=== PATIENT | female | born 1980 | race Caucasian/White ===

== ENCOUNTER 2021-06-29 12:11 | Emergency (ER) | payer OTHER, SELFPAY ==
[2021-06-29 12:30] VITALS: BP 151/88; PULSE 87; RESP 18; TEMP 36.9; O2SAT 98
[2021-06-29 12:30] LABS: Apearance,Urine Clear (Clear); Bilirubin,Urine Negative (Negative); Blood, Urine Negative (Negative); Color,Urine Yellow (Yellow); Glucose,Urine (UA) Negative (Negative); Ketones,Urine TRACE (Negative); Protein,Urine Negative (Negative); UTC Leukocyte Esterase,Urine 1+ (Negative); UTC Nitrate,Urine Negative (Negative); Urobilinogen,Urine 2 EU/dl (0.2)
--- NOTE | 2021-06-29 12:57 | HMH.EDUTC ---
[facility] [place] Clinical Impression: UTI (urinary tract infection) Qualifiers: Urinary tract infection type: site unspecified Hematuria presence: without hematuria Qualified Code(s): N39.0 - Urinary tract infection, site not specified Diarrhea Qualifiers: Diarrhea type: unspecified type Qualified Code(s): R19.7 - Diarrhea, unspecified Disposition: Home, Self-Care Condition on Discharge: Good Instructions: Diarrhea, DI for Urinary Tract Infection (UTI) Additional Instructions: *Increase fluids. Water not Soda or Tea *Start antibiotic immediately and be sure to take as ordered for the FULL length of time although you should start to see improvement over the next 48 hours *Be SURE to follow up anytime for new or worsening symptoms with your family doctor. AND in 48 hours for urine culture results with your family doctor, if you do not have a doctor then you may call back to the [facility] for urine culture results and further treatment. We do recommend that you choose and establish care with a Primary Care Physician. AND follow up with them in 10-14 days to repeat UA to ensure infection is resolved and blood no longer present *Be sure to let your PCP know that we sent urine cultures from the [facility] so they can follow up to ensure that you area the on the correct antibiotic Call your doctor office and make appointment for 48 hours (2 days from today) to follow up and get the results of your urine culture and further treatment Prescriptions: cephALEXin [cephALEXin 500mg capsule*] 500 mg PO BID 7 Days #14 cap Transmission Status: Pending to [facility] Ondansetron [Zofran 4mg ODT] 4 mg PO TIDP PRN #9 tab PRN Reason: Nausea Transmission Status: Pending to [facility] Referrals: Km Chacon MD [Primary Care Provider] - As needed Time of Disposition: 13:08 Medical Decision Making - Alcides Inquiry Pt receiving controlled substance: No Alcides was queried for this patient: No Vital Signs: 06/29/21 12:30 06/29/21 13:03 Temperature 98.4 F 98.4 F Temperature Source Oral Pulse Rate 87 Pulse Rate [Left Brachial] 87 Respiratory Rate 18 18 Blood Pressure 151/88 H Blood Pressure [Left Arm] 151/88 H Blood Pressure Mean [Left Arm] 109 Blood Pressure Source [Left Arm] Automatic Cuff Blood Pressure Position [Left Arm] Sitting 02 Sat by Pulse Oximetry 98 Oxygen Delivery Method Room Air - Lab Data Lab results reviewed: Yes: I reviewed the patient's lab results. Lab Results 06/29/21 12:29: Urine Color Yellow, Urine Appearance Clear, Urine pH 7.0, Ur Specific [place] 1.020, Urine Protein Negative, Urine Glucose (UA) Negative, Urine Ketones Trace, Urine Blood Negative, Urine Nitrate Negative, Urine Bilirubin Negative, Urine Urobilinogen 2, Ur Leukocyte Esterase 1+ A Orders (Tests/Meds): ORDERS Category Date Time Status Urine Culture Stat Micro 06/29/21 12:29 [place] [facility] [place] - General Stated complaint: diarrhea, abd pains Time Seen by Provider: 06/29/21 12:58 Mode of Arrival: Ambulatory Source of Information: Patient Limitations: No Limitations Description of Symptoms (Recalled from Triage Doc. by RN): PATEINT C/O WATERY DIARRHEA AND SOME ABDOMINAL PAIN X 2 DAYS HEENT Symptoms (Recalled from RN notes): No Resp Symptoms (Recalled from RN notes): No Skin Symptoms (Recalled from RN notes): No MS Symptoms (Recalled from RN notes): No Functional Status (Recalled from RN notes): WNL - History of Present Illness Provider Complaint: Patient state that for the last couple of days she has been having nausea, cramping and diarrhea State that she has also been having a little burning when she urinates and thinks she may have a UTI so she wanted that checked too - Related Data Home Medications Medication Instructions Recorded Confirmed PARoxetine HCL [Paxil] 30 mg PO DAILY 06/29/21 06/29/21 lisinopriL [Lisinopril] 5 mg PO DAILY 06/29/21 06/29/21 Previous Rx's Medication Instruction
[2021-06-29 13:03] VITALS: BP 151/88; PULSE 87; RESP 18; TEMP 36.9; O2SAT 98
[2021-09-26 09:44] LABS: UTC Influenza A Antigen Negative (Negative); UTC Influenza B Antigen Negative (Negative)
== END 2021-06-29 13:26 | disposition home or self-care (01) ==
PROVIDERS: Emergency Provider Nurse Practitioner; PCP Family Medicine
DX: N30.00 Acute cystitis without hematuria (principal); I10 Essential (primary) hypertension
CPT/HCPCS: 81003; 87086; 87804; 99212; G0463

== ENCOUNTER 2021-11-02 12:34 | Emergency (ER) | payer OTHER, SELFPAY ==
[2021-11-02 13:00] VITALS: BP 185/95; PULSE 69; RESP 20; TEMP 36.5; O2SAT 99; BMI 20.2
[2021-11-02 13:37] LABS: UTC Strep Screen (Rapid) Negative (Negative)
--- NOTE | 2021-11-02 13:38 | EXP.UTC ---
Discharge Plan Disposition Patient Disposition: Home, Self-Care Condition: Good Prescriptions Prescriptions: New amoxicillin 400 mg/5 mL suspension for reconstitution 500 mg PO TID 10 Days Qty: 187.5 0RF No Action lisinopril 5 MG tablet 5 mg PO DAILY Referrals Follow up/Referrals: Km Chacon MD [Primary Care Provider] - See instructions Activity Restrictions/Add. Instructions Additional Instructions/Restrictions: *Monitor Temp, Over the counter Motrin or Tylenol as directed/as needed Tylenol every 4 hours and Motrin every 6 hours (as long as your family doctor has told you that you can take it) for fever or pain. and straight to ER if unable to lower temp less than 101.0 after medication given *Warm salt water gargles may help to soothe the throat *Throat Lozenges? *Warm fluids like tea with honey may help to soothe the throat? *Sleep elevated *Humidifier/Vaporizer Your throat swab was sent for culture. Those results are typically sent to your primary care. Be sure to follow up in 2-3 days with your family doctor/primary care physician if no improvement so they can review those result and treat if necessary. If you don?t have a primary care doctor, I recommend you get one but in the mean time, you will have to return to a walk in clinicFollow up IMMEDIATELY for new or worsening symptoms or no Noticeable improvement over the next 48-72 hours. 911 for difficulty breathing or swallowing Clinical Impressions Clinical Impression: Otitis media Instructions Patient Instructions: Middle Ear Infection, Amoxicillin Discharge ED Provider: Marisol Degroot [facility] General Stated complaint: left ear pain, sore throat Mode of Arrival: Ambulatory Source of Information: Patient Limitations: No Limitations Time Seen by Provider: 11/02/21 13:20 Description of Symptoms (Recalled from Triage Doc. by RN): PATIENT C/O BILATERAL EAR PAIN AND SORE THROAT X 2 DAYS HEENT Symptoms (Recalled from RN notes): Yes Resp Symptoms (Recalled from RN notes): No Skin Symptoms (Recalled from RN notes): No MS Symptoms (Recalled from RN notes): No Functional Status (Recalled from RN notes): WNL History of Present Illness Provider Complaint: Patient states that she has been having bilateral ear pain and sore throat for the last couple of days States that today she was hurting worse so she came in Related Data Home Medications Medication Instructions Recorded Confirmed lisinopril 5 mg tablet 5 mg PO DAILY Hypertension 06/29/21 11/02/21 Previous Rx's Medication Instructions Recorded amoxicillin 400 mg/5 mL oral 500 mg (6.25 mL) PO TID 10 days 11/02/21 suspension #187.5 mL Allergies Allergy/AdvReac Type Severity Reaction Status Date / Time No Known Allergies Allergy Verified 06/29/21 12:42 Worker's Comp Is this a Worker's Comp case?: No [facility] Medical History (Updated 11/02/21 @ 13:58 by Marisol Degroot APRN) Anxiety Hypertension Overactive thyroid gland Surgical History (Updated 11/02/21 @ 13:08 by Sonja Kebede RN) History of hysterectomy Social History (Updated 11/02/21 @ 13:08 by Sonja Kebede RN) Smoking Status: Current every day smoker tobacco type: cigarettes packs per day: 1 second hand exposure: No alcohol intake: never current occupational status: other Travel in the last 8 weeks: None housing: house ROS Obtained: Yes All systems reviewed & no additional complaints except as documented and Yes Systems reviewed as appropriate & no additional complaints except as documented Constitutional Constitutional: Reports system reviewed and no additional complaints, except as documented and Reports as per HPI Eyes Eyes: Reports system reviewed and no additional complaints, except as documented and Reports as per HPI ENT Ears, Nose, Mouth, and Throat: Reports system reviewed and no additional complaints, except as documented, Reports as per HPI
[2021-11-02 13:55] VITALS: BP 185/95; PULSE 69; RESP 20; TEMP 36.5; O2SAT 99
== END 2021-11-02 13:58 | disposition home or self-care (01) ==
PROVIDERS: Emergency Provider Nurse Practitioner; PCP Family Medicine
DX: H66.92 Otitis media, unspecified, left ear (principal); H92.01 Otalgia, right ear; J02.9 Acute pharyngitis, unspecified; I10 Essential (primary) hypertension; E05.90 Thyrotoxicosis, unspecified without thyrotoxic crisis or storm; F41.9 Anxiety disorder, unspecified; F17.210 Nicotine dependence, cigarettes, uncomplicated; Z79.899 Other long term (current) drug therapy
CPT/HCPCS: 87880; 99213; G0463

== ENCOUNTER 2022-01-16 03:06 | Emergency (ER) | payer OTHER, SELFPAY ==
[2022-01-16 03:17] VITALS: BP 00/00; PULSE 0; RESP 0; TEMP -17.7; TEMP 0
--- NOTE | 2022-01-16 03:19 | PC.NURSE ---
Patient spoke with MD and patient stated that she only wanted to be swabbed for strep and flu, that she wanted to know what she had before going to work but that she doesnt actually want an er visit. wrote outpatient order per pt request.
[2022-01-16 03:29] LABS: Coronavirus 19, PCR Not Detected (NotDetected); Influenza A, PCR Not Detected (NotDetected); Influenza B, PCR Not Detected (NotDetected)
[2022-01-16 04:00] LABS: Strep Scrn Group A (Rapid) Negative (Negative)
== END 2022-01-16 03:18 | disposition left against medical advice (07) ==
LOC: ER 03:18
PROVIDERS: Emergency Provider Emergency Medicine; PCP Family Medicine
DX: J02.9 Acute pharyngitis, unspecified (principal); R05.9 Cough, unspecified; I10 Essential (primary) hypertension; E05.90 Thyrotoxicosis, unspecified without thyrotoxic crisis or storm; F17.210 Nicotine dependence, cigarettes, uncomplicated; Z20.822 Contact with and (suspected) exposure to COVID-19; Z79.899 Other long term (current) drug therapy; Z53.21 Procedure and treatment not carried out due to patient leaving prior to being seen by health care provider
CPT/HCPCS: 87430; 99211; C9803; U0003; U0005

== ENCOUNTER 2022-03-08 22:08 | Emergency (ER) | payer OTHER, SELFPAY ==
[2022-03-08 22:10] VITALS: BP 169/85; PULSE 83; RESP 18; TEMP 37.1; O2SAT 100; BMI 21.0
--- NOTE | 2022-03-08 22:33 | XR_ITS ---
PROCEDURE INFORMATION: Exam: XR Facial Bones, Minimum of 3 Views, Complete Exam date and time: 03/08/2022 10:33 PM Age: 41 years old Clinical indication: Pain and injury or trauma; Other: Hit in nose with curtain sarina; Nose pain; Swelling; Additional info: Injury to nose , while cleaning a curtain sarina fell hitting the patient in the nose. TECHNIQUE: Imaging protocol: XR of the facial bones, minimum of 3 views. Complete exam. COMPARISON: No relevant prior studies available. FINDINGS: Sinuses: Well aerated. No opacification. Bones/joints: No fracture. Normal alignment. Soft tissues: Unremarkable. IMPRESSION: No evidence of nasal bone fracture
--- NOTE | 2022-03-08 23:04 | HMH.EDGENADL ---
Discharge Plan Disposition Patient Disposition: Home, Self-Care Chief Complaint: PAIN Prescriptions Prescriptions: No Action lisinopril 5 MG tablet 5 mg PO DAILY amoxicillin 400 mg/5 mL suspension for reconstitution 500 mg PO TID 10 Days Qty: 187.5 0RF Referrals Follow up/Referrals: Km Chacon MD [Primary Care Provider] - See instructions Clinical Impressions Clinical Impression: Contusion of nose Instructions Patient Instructions: DI for Contusion Discharge ED Provider: Travon Chance General Adult HPI General Chief complaint: PAIN Stated complaint: ao 03/08, nose swelling Time Seen by Provider: 03/08/22 23:04 Mode of Arrival: Ambulatory Source of Information: Patient and Medical Record Limitations: No Limitations Description of Symptoms (Recalled from ER Triage Doc. by RN): the pt states that she had a curtain sarina hit her on the nose the pt was concerned becasue she has a hx of sinus issues and her left nostril has swelling. History of Present Illness HPI narrative: acute nasal trauma and now has swelling Onset (ago): day(s) Location: face Severity: moderate Associated symptoms: denies other symptoms Related Data Home Medications Medication Instructions Recorded Confirmed lisinopril 5 mg tablet 5 mg PO DAILY Hypertension 06/29/21 11/02/21 Previous Rx's Medication Instructions Recorded amoxicillin 400 mg/5 mL oral 500 mg (6.25 mL) PO TID 10 days 11/02/21 suspension #187.5 mL Allergies Allergy/AdvReac Type Severity Reaction Status Date / Time No Known Allergies Allergy Verified 06/29/21 12:42 [facility] Disclaimer: The information contained in this section may have been updated after the patient was seen, as this information can be updated by other users. Medical History (Updated 03/08/22 @ 23:30 by Travon Chance MD) Anxiety Hypertension Overactive thyroid gland Surgical History (Updated 11/02/21 @ 13:08 by Sonja Kebede RN) History of hysterectomy Social History (Updated 11/02/21 @ 13:08 by Sonja Kebede RN) Smoking Status: Former smoker second hand exposure: No alcohol intake: never current occupational status: other Travel in the last 8 weeks: None housing: house ROS Obtained: Yes All systems reviewed & no additional complaints except as documented Physical Exam General General appearance: alert Head Head exam: normocephalic Eye Eye exam: Present PERRL and EOMI ENT ENT exam: Present mucous membranes moist Expanded ENT Exam Nasal speculum exam: Bilateral: other (nasal swelling turbinates ) Neck Neck exam: Present full ROM Respiratory Respiratory exam: Absent respiratory distress Cardiovascular Cardiovascular exam: Present regular rate Abdominal Exam Abdominal exam: Present soft Extremities Exam Extremities exam: Present full ROM Neurological Exam Neurological exam: Present alert, oriented X3 and CN II-XII intact; Absent motor sensory deficit Psychiatric Psychiatric exam: Present normal affect Skin Skin exam: Absent rash Medical Decision Making Medical Records Medical records reviewed: Yes I reviewed the patient's medical records. Alcides Inquiry Pt receiving controlled substance: No Vital Signs: 03/08/22 22:10 Temperature 98.8 F Temperature Source Oral Pulse Rate [Right] 83 Respiratory Rate 18 Blood Pressure [Right Arm] 169/85 H Blood Pressure Mean [Right Arm] 113 02 Sat by Pulse Oximetry 100 Lab Data Lab results reviewed: Yes I reviewed the patient's lab results. Orders (Tests/Meds): ORDERS Category Date Time Status XR facial bones min 3V Stat Exams 03/08/22 22:33 Completed Radiology Data #1: Image(s): Other (nasal ) Image Reviewed: Yes I have reviewed radiologist's interpretation Preliminary Findings: No Fracture Seen Medical Decision Narrative: nasal contusion with no fx seen Critical Care Time Critical Care Time Critical Care Time: No
[2022-03-08 23:37] VITALS: BP 147/78; PULSE 80; RESP 18; TEMP 37.1; O2SAT 100
== END 2022-03-08 23:40 | disposition home or self-care (01) ==
PROVIDERS: Emergency Provider Emergency Medicine; PCP Family Medicine
DX: S00.33XA Contusion of nose, initial encounter (principal); W22.8XXA Striking against or struck by other objects, initial encounter; F41.9 Anxiety disorder, unspecified; I10 Essential (primary) hypertension; Z90.710 Acquired absence of both cervix and uterus; Z87.891 Personal history of nicotine dependence
CPT/HCPCS: 70150; 99283; 99284

== ENCOUNTER 2024-02-23 15:13 | Outpatient (CLI) | payer OTHER, SELFPAY ==
--- NOTE | 2024-02-23 15:16 | US_ITS ---
FINAL REPORT TECHNIQUE: Real-time grayscale and color ultrasound of the thyroid was performed. CLINICAL HISTORY: LOW TSH LEVEL FINDINGS: The thyroid gland is normal in size measuring 49 mm on the right and 48 mm on the left. The isthmus measures 3 mm. The parenchyma is unremarkable . Nodules: No suspicious mass or nodule identified. IMPRESSION: Unremarkable thyroid ultrasound. Reviewed, Interpreted and Dictated by Carlos Alberto Washburn MD Transcribed by Desire Mitchell Authenticated and [facility]
== END 2024-02-23 23:59 | disposition home or self-care (01) ==
LOC: RAD 15:13
PROVIDERS: PCP Family Medicine; Visit Provider Family Medicine
DX: R79.89 Other specified abnormal findings of blood chemistry (principal)
CPT/HCPCS: 76536

== ENCOUNTER 2024-05-14 05:47 | Emergency (ER) | payer OTHER, SELFPAY ==
[2024-05-14 06:02] VITALS: BP 114/74; PULSE 72; RESP 14; TEMP 36.1; O2SAT 100; BMI 18.3
--- NOTE | 2024-05-14 06:04 | CT_ITS ---
FINAL REPORT TECHNIQUE: Axial images were obtained of the cervical spine by computed tomography. Coronal and sagittal reconstruction process performed. This study was performed with techniques to keep radiation doses as low as reasonably achievable (ALARA). Individualized dose reduction techniques using automated exposure control or adjustment of mA and/or kV according to the patient''s size were employed. CLINICAL HISTORY: acute on chronic neck pain FINDINGS: Cervical vertebrae show normal height. Disc spaces are well-preserved. There is no malalignment. The facets are properly aligned. IMPRESSION: No fracture. Reviewed, Interpreted and Dictated by Abner Copeland MD Transcribed by Britney Flor Authenticated and [facility]
--- NOTE | 2024-05-14 06:05 | PC.NURSE ---
Pt to bed 10 ambulatory. No obvious distress noted.
--- NOTE | 2024-05-14 06:06 | HMH.EDGENADL ---
Discharge Plan Disposition Patient Disposition: Home, Self-Care Prescriptions Prescriptions: New methocarbamol 500 mg tablet 1,000 mg PO Q6H PRN (Reason: pain) Qty: 120 0RF ondansetron HCl 4 mg tablet 4 mg PO Q8H PRN (Reason: nausea and vomiting) 5 Days Qty: 30 0RF No Action cefdinir 300 mg capsule 300 mg PO Q12H 10 Days Qty: 20 0RF lisinopril 5 MG tablet 5 mg PO DAILY lisinopril 20 mg tablet 20 mg PO DAILY meloxicam 7.5 mg tablet 7.5 mg PO DAILY PRN (Reason: Pain (Scale Score 1-3)) diazepam 2 mg tablet 2 mg PO NEEDED PRN (Reason: Anxiety) triamterene-hydrochlorothiazid 37.5-25 mg tablet 37 tab PO DAILY fluticasone propionate 50 mcg/actuation spray,suspension 50 mcg INTRANASAL NEEDED PRN (Reason: ALLERGIES) Referrals Follow up/Referrals: Provider,Referral, MD [Primary Care Provider] - See instructions Activity Restrictions/Add. Instructions Additional Instructions/Restrictions: I sent prescriptions for medications to the clinic pharmacy. Please follow-up with your primary care provider. Clinical Impressions Clinical Impression: Neck pain Instructions Patient Instructions: DI for Neck Pain Print Language Print Language: Citizen Of [place] Discharge ED Provider: Dax Reynolds Adult HPI General Chief complaint: Neck Pain/Injury Stated complaint: neck, back pain Time Seen by Provider: 05/14/24 05:50 History of Present Illness HPI narrative: 43-year-old female with reported chronic neck pain presents for worsening of neck pain. She reports that she is on Valium as a muscle relaxer through Dr. Thurston. Her pain got worse last night after she was moving boxes up and down through the attic. There was not one specific moment where she felt the injury occurred, but the pain has been worsening since then. She reports the pain is worse in the midline, approximately 9 out of 10. She denies any numbness tingling or weakness in any of the extremities. Reports pain is associated with nausea, the nausea improves when the pain improves. She took Tylenol and used an ice pack with some improvement but it has worsened again afterwards. She has never had a CT before. Related Data Home Medications ?Medication ?Instructions ?Recorded ?Confirmed lisinopril 5 mg tablet 5 mg PO DAILY Hypertension 06/29/21 05/14/24 diazepam 2 mg tablet 2 mg PO NEEDED PRN Anxiety 05/14/24 05/14/24 fluticasone propionate 50 50 mcg intranasal NEEDED PRN 05/14/24 05/14/24 mcg/actuation nasal ALLERGIES spray,suspension lisinopril 20 mg tablet 20 mg PO DAILY 05/14/24 05/14/24 meloxicam 7.5 mg tablet 7.5 mg PO DAILY PRN Pain (Scale 05/14/24 05/14/24 Score 1-3) triamterene 37.5 37 tab PO DAILY 05/14/24 05/14/24 mg-hydrochlorothiazide 25 mg tablet Previous Rx's ?Medication ?Instructions ?Recorded cefdinir 300 mg capsule 300 mg PO Q12H 10 days #20 caps 04/24/24 methocarbamol 500 mg tablet 1,000 mg (2 x 500 mg) PO Q6H PRN 05/14/24 pain #120 tabs ondansetron HCl 4 mg tablet 4 mg PO Q8H PRN nausea and 05/14/24 vomiting 5 days #30 tabs Allergies Allergy/AdvReac Type Severity Reaction Status Date / Time No Known Allergies Allergy Verified 04/24/24 08:54 [facility] Disclaimer: The information contained in this section may have been updated after the patient was seen, as this information can be updated by other users. Medical History Anxiety Overactive thyroid gland Hypertension Surgical History History of hysterectomy Social History Smoking Status: Current every day smoker tobacco type: cigarettes packs per day: 1 second hand exposure: No alcohol intake: never current occupational status: other Travel in the last 8 weeks: None housing: house Have you lived/traveled outside US in past 30 days?: No Contact w/someone who lives/traveled outside US past 30 days?: No Exposure to someone with infectious disease in past 14 days?: No Do you have a fever (greater than 100.4 F or 38 C)?: No Have you tested positive for COVID-19: No Exposed to someone with COVID-19 in past 14 days?: No Do you have a sore throat?: No Do you have a cough?: No Do you have any weakness?: No Do you have any diarrhea?: No Are you experiencing any unusual bleeding?: No Do you have any muscle aches/pain?: No Do you have any abdominal pain?: No Are you experiencing loss of taste or smell?: No Other Medical History Have you received the Pneumonia Vaccine: No ROS Obtained: Yes All systems reviewed & no additional complaints except as documented Physical Exam General General appearance: alert and in no apparent distress Head Head exam: atraumatic and normocephalic Eye Eye exam: Present normal appearance, PERRL and EOMI ENT ENT exam: Present normal oropharynx and normal external ear exam Neck Neck exam: Present normal inspection and other (Midline and paraspinal cervical neck tenderness) Chest Chest inspection: Present normal inspection and symmetric chest wall rise; Absent tenderness Respiratory Respiratory exam: Present normal lung sounds bilaterally; Absent respiratory distress Cardiovascular Cardiovascular exam: Present regular rate and normal rhythm Abdominal Exam Abdominal exam: Present soft; Absent distention, tenderness or guarding Extremities Exam Extremities exam: Present normal inspection; Absent edema or joint swelling Back Exam Back exam: Present normal inspection; Absent tenderness Neurological Exam Neurological exam: Present alert and oriented X3; Absent motor sensory deficit Psychiatric Psychiatric exam: Present normal affect and normal mood Skin Skin exam: Present warm, dry and normal color Lymphatic Lymphatic Findings: no adenopathy Medical Decision Making Medical Records Medical records reviewed: Yes I reviewed the patient's medical records. Screening: Per USPSTF and CDC recommendations, given the prevalence of disease in our region, it is our hospital?s policy to screen for HIV and viral Hepatitis for all patients aged 18 and over and those with ongoing risk factors. Alcides Inquiry Pt receiving controlled substance: No Alcides was queried for this patient: No Vital Signs: 05/14/24 06:02 05/14/24 06:14 Temperature 97 F L 97 F L Temperature Source Oral Pulse Rate 72 Pulse Rate [Right Radial] 72 Respiratory Rate 14 14 Blood Pressure 114/74 Blood Pressure [Right Arm] 114/74 Blood Pressure Mean [Right Arm] 87 02 Sat by Pulse Oximetry 100 100 Oxygen Delivery Method Room Air Lab Data Lab results reviewed: Yes I reviewed the patient's lab results. Orders (Tests/Meds): ED MEDICATIONS Discontinued Medications Generic Name Dose Route Start Last Admin Trade Name Freq PRN Reason Stop Dose Admin Ketorolac Tromethamine 30 mg 05/14/24 06:04 05/14/24 06:14 Ketorolac 30mg/Ml Vial IM 05/14/24 06:05 30 mg ONCE ONE Administration Lidocaine 1 each 05/14/24 06:06 05/14/24 06:15 Lidocaine 5% Transdermal Patch TP 05/14/24 06:07 1 each ONCE ONE Administration Methocarbamol 1,000 mg 05/14/24 06:04 05/14/24 06:15 Methocarbamol 500mg Tablet PO 05/14/24 06:05 1,000 mg ONCE ONE Administration Ondansetron HCl 4 mg 05/14/24 06:04 05/14/24 06:14 Ondansetron 4mg Odt SL 05/14/24 06:05 4 mg ONCE ONE Administration ORDERS Category Date Time Status CT cervical spine wo con Stat Cat Scan 05/14/24 06:04 Taken Medical Decision Narrative: 43-year-old female with history of neck pain presents for significant worsening of neck pain after moving boxes up and down out of an attic. History was obtained via interactive discussion with patient. On arrival, patient is [afebrile, hemodynamically stable, satting appropriately, alert, oriented x4, GCS 15], moving all extremities spontaneously. Full physical exam performed and significant for midline and paraspinal C-spine tenderness Differential includes but is not limited to musculoskeletal strain, cervical fracture, dislocation, disc herniation, spinal cord compression. Patient was given Toradol, Robaxin, Zofran for symptomatic management and correction of underlying abnormalities. Workup initiated including CT C-spine.. On re-evaluation, patient [remains afebrile, HD stable.] Imaging independently interpreted by me and significant for evidence of acute fracture or significant degenerative changes on my interpretation of CT imaging.. See radiology read for full review of final results. Given patient history, exam and workup, patient's presentation most likely represents cervical strain. Patient request discharge prior to CT results. Given no significant mechanism, no neurodeficits and benign appearance of CT, I discharged her and told her that we would call if there was something abnormal on the CT according to radiology. I sent Robaxin and Zofran for symptoms to her pharmacy. Procedures Risk/Benefits of Procedure(s) Were Explained: Yes Critical Care Critical Care Time Critical Care Time: No
[2024-05-14 06:14] VITALS: BP 114/74; PULSE 72; RESP 14; TEMP 36.1; O2SAT 100
[2024-05-14] MEDS: KETOROLAC 30MG/ML VIAL 30 MG IM (06:14)
[2024-05-14] MEDS: ONDANSETRON 4MG ODT 4 MG SL (06:14)
[2024-05-14] MEDS: LIDOCAINE 5% TRANSDERMAL PATCH 1 EACH TP (06:15)
[2024-05-14] MEDS: METHOCARBAMOL 500MG TABLET 1000 MG PO (06:15)
--- NOTE | 2024-05-14 06:20 | PC.NURSE ---
Pt to CT scan.
--- NOTE | 2024-05-14 06:25 | PC.NURSE ---
Pt returns from CT scan ambulatory.
[2024-05-14 06:32] VITALS: BP 128/74; PULSE 74; RESP 18; TEMP 36.6; O2SAT 98
== END 2024-05-14 06:36 | disposition home or self-care (01) ==
PROVIDERS: Emergency Provider Emergency Medicine
DX: M54.2 Cervicalgia (principal); R11.0 Nausea; F17.210 Nicotine dependence, cigarettes, uncomplicated
CPT/HCPCS: 72125; 96372; 99284; J1885; Q0162

== ENCOUNTER 2024-05-31 13:24 | Outpatient (RCR) | payer OTHER, SELFPAY ==
--- NOTE | 2024-05-31 15:34 | HMH.PTOPEV ---
PT Outpatient Evaluation Rehab PT Outpatient Evaluation Start: 05/31/24 15:05 Freq: Status: Active Protocol: Document 05/31/24 15:05 NARENDRA (Rec: 05/31/24 15:28 NARENDRA [id number]) E-signed By James Gilbert, PT Outpatient Therapy Subjective History Subjective History Pt is a 43 yof who is referred to [facility] outpatient PT with complaints of neck and back pain. She reports that she has dealt with this pain for years. Describes her pain is achey and burning in her neck and into her shoulder blades. She reports that her pain is constant but is worsened with overhead activities. She had a CT scan of her neck which was negative. She reports that her pain has improved slightly with prescribed medications. 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 Chief Complaint Pain,Stiff Symptom Type Ache,Burning Symptoms Relieved By Heat,Ice,Prescription Meds Symptoms Aggravated By Bending/Stooping,Physical Activity,Twisting,Lifting Prior Functional Limitations None Current Functional Limitations Reaching,Lifting,Housework, Desk Work/Reading,Driving Symptom Description Constant but Variable Level of pain today (0-10) 7 Pain scale - at its best (0-10) 4 Pain scale - at its worst (0-10) 9 Cervical Eval Palpation Cervical Muscles R Cervical Paraspinal,L Cervical Paraspinal,R Suboccipital,L Suboccipital,R CT Junction,L CT Junction,R Upper Trapezius,L Upper Trapezius,R Thoracic Paraspinals,L Thoracic Paraspinals Cervical/Thoracic Palpation Findings Tenderness Posture Head/C-Spine Posture Sitting Position Neutral Position Head/C-Spine Posture Standing Position Neutral Position Flexibility Deficits Upper Trapezius Muscle Length (R) Moderate Tightness,(L) Moderate Tightness Levaetor Scapulae Muscle Length (R) Moderate Tightness,(L) Moderate Tightness Pectoralis Minor Muscle Length (R) Moderate Tightness,(L) Moderate Tightness Passive Joint Mobility Cervical PIVM Dec: R OA L OA R C3/4 L C3/4 R C4/5 L C4/5 R C5/6 L C5/6 R C6/7 L C6/7 R C7/T1 L C7/T1 AROM Cervical Spine Extension Active Range of 10 Motion (degrees) Cervical Spine Flexion Active Range of 15 Motion (degrees) Cervical Spine Right Lateral Flexion 5 Active Range of Motion (degrees) Cervical Spine Left Lateral Flexion 5 Active Range of Motion (degrees) Cervical Spine Right Rotation Active 10 Range of Motion (degrees) Cervical Spine Left Rotation Active 10 Range of Motion (degrees) MMT Bilateral Deltoid (C5) 2+ Poor+ Biceps Brachii Strength Grade 4- Good- Wrist Extension Strength Grade 5 Normal Triceps Brachii Strength Grade 4- Good- Wrist Flexion Strength Grade 5 Normal Extensor Pollicis Longus Strength Grade 5 Normal Finger Abduction Strength Grade 5 Normal DTR Rt Biceps 2+ Lt Biceps 2+ Rt Brachioradialis 2+ Lt Brachioradialis 2+ Rt Triceps 1+ Lt Triceps 1+ Altered Sensation Bilateral Upper extremity Dermatomes C4,C5,C6,C7,C8,T1 Comment INTACT Special Test C-Spine Foraminal Compression ([place]) Negative Left,Negative Right Test C-spine Verterbral Accessory Movements Central P/A [place],Right P/A that Elicit Symptoms [place],Left P/A [place] C-Spine Foraminal Distraction Test Negative C-Spine Compression Test Positive Left,Positive Right C-Spine Swallowing Test Negative Left Shoulder Abduction Relief Test Negative Left,Negative Right Shoulder Brachial Plexus Stretch Test Negative Left,Negative Right Oswestry Index Section 1 Pain Intensity The pain is severe and does not vary much Section 2 Personal Care (Washing,Dresing) increase the pain, but I manage not to change my way of doing it Section 3 Lifting Pain prevents me from lifting weights off the floor Section 4 Walking I have some pain when walking but it does not increase with distance Section 5 Sitting I can sit in my favorite chair for as long as I like Section 6 Standing I have some pain on standing, but it does not increase with time Section 7 Sleeping Because of my pain, my normal night's sleep is less than 6 hours sleep Section 8 Social Life Pain has no significant effect on my social life apart from limiting Section 9 Traveling I get extra pain while traveling, but it does not compel me to seek al Section 10 Changing Degreee of Pain My pain is neither getting better or worse Score and Risk Level Oswestry Sc 21 Oswestry Risk Level Moderate Disability Outpatient Therapy Assessment Impairments Problems/Impairmments Palpation Tenderness,Impaired Range of Motion,Impaired Strength,Impaired Lifting, Impaired Dressing,Impaired Household Care,Impaired Work Activities,Subjective C/O Pain Prognosis Rehab Potential Fair Clinical Impression Consistent with Diagnosis Yes Consistent with Neck pain with mobility deficits Short Term Goals Number of Weeks 4 Decreased Palpation Tenderness Yes: 2/4 to TTP Assessment Above Increase Range of Motion Yes: 50-75% WNL of CROM Increase Strength Yes: 3+/5 to B shoulders Restore Ability to Lift Objects to Waist Yes: 10# without increasing Level pain and proper lifting mechanics Restore Ability to Lift Objects to Yes: 3# without increasing Shoulder Level pain and proper scapulohumeral rhythm Improve Ability For Household Care Yes: Light cleaning without increasing pain Improve Oswestry Score Yes: Mild Disability Decrease Subjective C/O Pain Yes: 510 with above assessment Patient to be Ind w/ HEP Yes 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 Goals Number of Weeks 8 Decreased Palpation Tenderness Yes: 0-1/4 to TTP Assessment Increase Range of Motion Yes: 75-100% CROM Increase Strength Yes: 4-4+/5 to B shoulders Restore Ability to Lift Objects to Waist Yes: 20# without increasing Level pain and with proper lifting mechanics Restore Ability to Lift Objects Overhead Yes: 3# without increasing pain and with proper SH Rhythm Improve Ability For Household Care Yes: Heavy Cleaning Activities without increasing pain Improve Oswestry Score Yes: No Disability Decrease Subjective C/O Pain Yes: 2-05/10 with above assessment Patient to be Ind w/ Advanced HEP Yes Outpatient Therapy Plan of Care Treatment Plan May Include Therapeutic Exercise Including Home Yes Exercise Program Manual Therapy Techniques Yes Neuromuscular Re-education Yes Therapeutic Activities to Return to Yes Previous Functional/Work Level ADL/Self Care Education Yes Mechanical Traction Yes Thermal Modalities Yes Electrical Stimulation Yes Ultrasound/Phonophoresis Yes Manual Lymphatic Drainage Yes Eval/Re-Eval Yes Frequency Times per week 2 Duration Number of Weeks 8 Addendums This patient is a candidate for social No or vocational rehab? Patient/Guardian verbally acknowledges Yes understanding of treatment program and consents to further treatment? Patient/Guardian verbally acknowledges Yes understanding of diagnosis, prognosis and goals for treatment? Eval Complexity PT Charges 37624 - Moderate Complexity Shoulder/Elbow Eval Shoulder Objective Measurements Elbow Objective Measurements PHYSICIAN CERTIFICATION: I certify the specified therapy services for Naomy Pichardo are required, authorized, and reviewed every 30 days.
== END 2024-05-31 23:59 | disposition home or self-care (01) ==
LOC: PT 13:24
PROVIDERS: Visit Provider Family Medicine
DX: M54.9 Dorsalgia, unspecified (principal)
CPT/HCPCS: 97163; 97530

== ENCOUNTER 2024-06-23 15:00 | Outpatient (RCR) | payer OTHER, SELFPAY | END 2024-06-23 23:59 | disposition home or self-care (01) | LOC: PT 15:00 | PROVIDERS: Visit Provider Family Medicine | DX: M54.9 Dorsalgia, unspecified (principal) | CPT/HCPCS: 97110; 97140; 97530 ==

== ENCOUNTER 2024-12-28 12:44 | Outpatient (CLI) | payer OTHER, SELFPAY ==
--- OUTSIDE RECORDS SUMMARY | 2024-02-05 10:15 | XMS_ITS ---
Author Organization [facility] Address [address] [place] [id number] Care Team Providers Care Supply Chain Tech Name Role Phone Kana Box Primary Care Provider [phone] Elidia Thurston Unavailable [phone] Allergies No Known Allergies Results Component Value Reference Range Notes P-Comprehensive Metabolic Pa annia (CMP) Reviewed date:02/09/2024 12:59:10 PM Interpretation:Na 131, cl 93, bun 30, Cr 1.45, gfr 46 Performing Lab: Notes/Report: Test performed by [facility] [address] [place] [address] , [address], [place] [address] Clovis Raimrez MD, Dial Mounter CLIA: [id number] Sodium 131 135-145 mmol/L Potassium 5.1 3.5-5.3 mmol/L Chloride 93 97-108 mmol/L CO2 22 22-32 mmol/L Glucose 81 65-99 mg/dL BUN 30 6-20 mg/dL Creatinine 1.45 0.50-1.00 mg/dL Calcium 10.3 8.6-10.4 mg/dL eGFR by Creatinine 46 >59 mL/min/1.73m2 Protein 7.4 6.0-8.3 g/dL Albumin 5.0 3.5-5.3 g/dL Alkaline Phosphatase 73 35-121 IU/L ALT (SGPT) 8 <5-47 IU/L AST (SGOT) 16 <5-40 IU/L Bilirubin, Total 1.0 <0.2-1.2 mg/dL A/G Ratio 2.1 1.1-2.5 P-TSH Reviewed date:02/09/2024 12:59:10 PM Interpretation:0.38 Performing Lab: Notes/Report: Test performed by [facility] [address] [place] [address] , [address], [place] [address] Clovis Ramirez MD, Dial Mounter CLIA: [id number] TSH 0.38 0.43-5.25 mU/L REASON FOR VISIT checkup Medications Medication SIG (Take, Route, Frequency, Duration) Notes Start Date End Date Status Fluticasone Propionate 50 MCG/ACT Instill 1 SPRAY IN EACH NOSTRIL TWICE DAILY; Duration: 30 Active diazePAM 2 MG 1 tablet as needed O rally Three times a day 02/05/2024 Active Meloxicam 7.5 MG 1 tablet Orally Once a day; Duration: 30 day(s) 06/26/2023 Active Maxzide-25 37.5-25 MG 1 tablet in the mo rning Orally Once a day; Duration: 30 days Active Lisinopril 20 mg TAKE ONE TABLET BY M OUTH EVERY DAY; Duration: 30 Active Vital Signs Blood pressure systolic 102 mm Hg 02/05/20 24 Blood pressure diastolic 68 mm Hg 024 Heart Rate 78 /min 02/05/2024 Height 63.50 in 02/05/2024 Weight 102.8 lbs 02/05/2024 BMI 17.92 kg/m2 02/05/2024 Encounters Encounter Location Date Provider Diagnosis [facility] [address] [facility] [address] [facility] [address] [place], [place] [id number] 02/05/2024 Elidia Thurston Situational depressi on F43.21 ; Essential hypertension I10 ; Hyperthyroidism E05.90 and Anxiety disorder F41.9 Assessments Encounter Date Diagnosis (ICD Code) Assessment Notes Treatment Notes Treatment Clinical Notes Section Notes 02/05/2024 Situational depression (ICD-10 - F43.21) 02/05/2024 Essential hypertension (ICD-10 - I10) 02/05/2024 Hyperthyroidism (ICD-10 - E05.90) 02/05/2024 Anxiety disorder (ICD-10 - F41.9) Plan Of Treatment Medication Medication Name Sig Start Date Stop Date Notes diazePAM 2 MG 1 tablet as needed O rally Three times a day 02/05/2024 Next Appt Details Follow Up: 3 Months, Reason: Provider Name:Elidia Diaz er, 01/07/2025 11:30:00 AM, [address], [address], [place], [id number], Progress Notes * Naomy PICHARDODOB: 2 (44 yo F)Acc No.[id number]:02/05/2024 Progress Notes Patient: Naomy CARO Provider: Elidia Thurston M.D. :1980 A ge:43 Y S ex:Female Date:02/05/2024 Address:[address] [place], [place] [address], [id number] Pcp:Kana Box Subjective: * Chief Complaints: * 1 . Checkup. * HPI: P sychology: The patient is here today for a check up on Depression with anxiety. Pt states she has had some sad days through the holiday since her mother passed, but having her granddaughter helps. Pt states she is needing a refill sent to Clinic pharmacy for the Diazepam. * ROS: D ERMATOLOGY: no R jackie. n o H caryl. G ASTROENTEROLOGY: no N ausea. n o V omiting. n o D iarrhea.? U ROLOGY: no D ifficulty urinating. n o B lood in urine. * Medical History: A llergic rhinitis, Anxiety, Endometriosis, Tobacco abuse, 03/01/2015 Patient will no longer receive controlled substances from [facility] per Dr. Chacon. * Surgical History: T ubal Ligation , LT Salpingoophorectomy , Hysterectomy 05/10/2010, Oral 10/29/2011. * Hospitalization/Major Diagno stic Procedure: E mergency surgery after hysterectomy 05/2010, Abdominal Pain- [facility] 07/24/2012, Migraine- [facility] 08/2012, Neck pain- [facility] 12/04/2014, Panic Attacks- [facility] ER , LT Knee Effusion- [facility] 02/12/2018, Nose Injury- [facility] 03/08/2022. * Family History: F ather: alive. M other: alive, hypertension. 1 sister(s) - healthy. 1 son(s) , 1 daughter(s) - healthy. . * Social History: C URRENT TOBACCO USE S moking Status: Patient does smoke, packs per day: 1. C affeine: yes, frequency:. Exercise: yes. Home smoke detector use: yes. Marital Status: , . Past smoking status: yes, PPD: < 1, years: since age of 22 ,determination:. Recreational drug use: no. Alcohol: no. * Medications: T aking Meloxicam 7.5 MG Tablet 1 tablet Orally Once a day , Taking Fluticasone Propionate 50 MCG/ACT Suspension Instill 1 SPRAY IN EACH NOSTRIL TWICE DAILY , Taking diazePAM 2 MG Tablet 1 tablet as needed Orally Three times a day , Taking Lisinopril 20 mg Tablet TAKE ONE TABLET BY MOUTH EVERY DAY , Taking Maxzide-25 37.5-25 MG Tablet 1 tablet in the morning Orally Once a day , Medication List reviewed and reconciled with the patient * Allergies: N .K.D.A. Objective: * Vitals: W t:102.8, Temp:98.2, BP:102/68, HR:78, Nurse:SABRINA, Ht: 63.50, BMI:17.92. * Examination: G eneral Examination: General Appearance: N AD. H EENT: u nremarkable.?Oral cavity: n o lesions, mucosa moist and WNL, no erythema. N anna: s upple, no lymphadenopathy, less tender, no spasm. C hest: n ormal shape and expansion. H eart: RSR. L ungs: c lear to auscultation. N eurologic Exam: I ntact, gait normal.?Skin: n ormal, no rash. P eripheral pulses: n ormal . E xtremities: n o leg edema. P sychology: General Appearance: N AD. G rooming : a dequate.?Eye contact : n ormal. M ood : p leasant. N eurologic Exam: I ntact, gait normal. Assessment: * Assessment: 1. S ituational depression - F43.21 (Primary) 2 . E ssential hypertension - I10 3 . H yperthyroidism - E05.90 4 . A nxiety disorder - F41.9 Plan: * Treatment: Value Reference Range A /G Ratio 2.1 1.1-2.5 - * A lbumin 5.0 3.5-5.3 - g/dL * A lkaline Phosphatase 73 35-121 - IU/L * A LT (SGPT) 8 <5-47 - IU/L * A ST (SGOT) 16 <5-40 - IU/L * B ilirubin, Total 1.0 <0.2-1.2 - mg/dL * B UN 30 H 6-20 - mg/dL * C alcium 10.3 8.6-10.4 - mg/dL * C hloride 93 L 97-108 - mmol/L * C O2 22 22-32 - mmol/L * C reatinine 1.45 H 0.50-1.00 - mg/dL * G lucose 81 65-99 - mg/dL * P otassium 5.1 3.5-5.3 - mmol/L * S odium 131 L 135-145 - mmol/L * P rotein 7.4 6.0-8.3 - g/dL * e GFR by Creatinine 46 L >59 - mL/min/1.73m2 * Rosalind Okeefe Ann 4 12:59:00 PM >See phone encounter 2.?Hyperthyroidism?LAB: P-TSH (Collection Date & Time - 02/05/2024 02:06 PM)?0.38* Value Reference Range T SH 0.38 L 0.43-5.25 - mU/L * Rosalind Okeefe Ann 4 12:59:00 PM >See phone encounter 3.?Anxiety disorder? Refill diazePAM Tablet, 2 MG, 1 tablet as needed, Orally, Three times a day, 90, Refills 2.? * Follow Up: 3 Months * Images: Billing Information: * Visit Code: 78381 Office Visit, Est Pt., Level 4. * Procedure Codes: * Electronic signature of Elidia Thurston MD on 12/28/2024 at 01:15 PM EDT Sign off status: Pending * Provider: Elidia Thurston M.D. Date: 04/07/2023 Generated for Chriss warren/Faxing/eTransmitting on: 1 01:15 PM EDT History and Physical Notes * Examination Category Sub-Category Detail Notes Category Not es General Examination HEENT: unremarkable Heart: RSR Lungs: clear to auscultatio n Extremities: no leg edema General Appearance: NAD Skin: normal, no rash Neurologic Exam: Intact, gait normal Neck: supple, no lymphaden opathy, less tender, no spasm Oral cavity: no lesions, mucosa m oist and WNL, no erythema Peripheral pulses: normal Chest: normal shape and exp ansion Psychology General Appearance: NAD Neurologic Exam: Intact, gait normal Grooming : adequate Eye contact : normal Mood : pleasant
--- OUTSIDE RECORDS SUMMARY | 2024-05-06 09:45 | XMS_ITS ---
Author Organization [facility] Address [address] [place] [phone] Care Team Providers Care Crab Catcher Name Role Phone Kana Box Primary Care Provider [phone] Elidia Thurston Unavailable [phone] Allergies No Known Allergies Results Component Value [...] Encounter Location Date Provider Diagnosis [facility] 12[address] [facility] 36 [facility] [address] [place] [phone] 05/06/2024 Elidia Thurston Acute URI J06.9 and [...] Name:Elidia Diaz er, 01/07/2025 11:30:00 AM, [address] [facility] 36 [facility], [address], [place], [phone], Procedure Notes * Category Sub-Category Detail Notes Tympanometry abnormal bilaterally low peaks Volume left 1.2 Volume right 1.5 Stapedial reflex absent bilaterally Progress Notes * Naomy PICHARDODOB: 2 (44 yo F)Acc No.[id number]:05/06/2024 Progress Notes Patient: Naomy CARO Provider: Elidia Thurston M.D. :1980 A ge:43 Y S ex:Female Date:05/06/2024 Address:[place] Pcp:Kana Box Subjective: * Chief Complaints: * 1 . 3 months. * HPI: P sychology: The pt is here today for a check up on Depression with anxiety. Pt states she doing better with the depression. Pt states she has some swelling in her lymph nodes in her neck and some fluid in her ears. Pt states she went to the [facility] on FridayApr 24 and was told she [...] will no longer receive controlled substances from [facility] per Dr. Chacon. * Surgical History: T ubal Ligation , LT Salpingoophorectomy , Hysterectomy 05/10/2010, Oral 10/29/2011. * Hospitalization/Major Diagno stic Procedure: E mergency surgery after hysterectomy 05/2010, Abdominal Pain- [facility] ER 07/24/2012, Migraine- [facility] 08/2012, Neck pain- [facility] ER 12/04/2014, Panic Attacks- [facility] ER , LT Knee Effusion- [facility] ER 02/12/2018, Nose Injury- [facility] ER 03/08/2022. * Family History: F [...] bilaterally. * Procedure Codes: 9 2567 TYMPANOMETRY, [address] [place], [address] CAPILLARY BLOOD DRAW, 98452 CBC WITH AUTO DIFF, 3074F SYST BP LT 130 MM HG, 3079F DIAST BP 80-89 MM HG * Follow Up: 3 Months * Images: Billing Information: * Visit Code: 11095 Office Visit, Est Pt., Level 4. Modifiers: 25 * Procedure Codes: 87280 TYMPANOMETRY. [address] [place]. [address] CAPILLARY BLOOD DRAW. 74617 CBC WITH AUTO DIFF. 3074F SYST BP LT 130 MM HG. 3079F DIAST BP 80-89 MM HG. * Electronic signature of Elidia Thurston MD on 12/28/2024 at 01:15 PM EDT Sign off status: Pending * Provider: Elidia Thurston M.D. Date: 0 05/06/2024 Generated for Printi ng/Faprachig/eTransmitting on: 1 01:15 PM EDT History and [...]
--- OUTSIDE RECORDS SUMMARY | 2024-05-14 06:30 | XMS_ITS ---
[facility] [address] [place] [id number] Care Team Providers Care Winterizer Name Role Phone Kana Box Primary Care Provider Elidia Thurston [phone] Allergies No Known Allergies Reason For Referral Reason back pain Diagnosis 1 Back pain (M54.9) [facility] Referring Provider First Name Elidia Frye Referring Provider Last Name Bertrand Referring Provider Speciality Family Pra ctice Referred Provider Specialty Physical The rapist General Notes Shayy Chase 05/15/19 12:18:48 PM > faxed to [facility] PT Referral Priority Routine REASON FOR [...] Encounters Encounter Location Date Provider Diagnosis [facility] [address] [facility] [address] [place] [phone] 05/14/2024 Elidia Thurston Back pain M54 .9 [...] 2 Weeks, Reason: Provider Name:Elidia Diaz er, 01/07/2025 11:30:00 AM, [address] [facility] [address] [facility], [address], [place], [phone], Progress Notes * Naomy PICHARDODOB: 2 (44 yo F)Acc No.[id number]:05/14/2024 Progress Notes Patient: Naomy CARO Provider: Elidia Thurston M.D. :1980 A ge:43 Y S ex:Female Date:05/14/2024 Address:[address] [id number] Pcp:Kana Box Subjective: * Chief Complaints: * 1 . ER this morning neck and shoulder pain. * HPI: S houlder/Upper arm: The patient is here today with c/o pain in her right shoulder. Pt states this pain got worse about 2 days ago and the nausea has worsened. Pt states she went to the ER at [facility] this morning and they gave her [...] will no longer receive controlled substances from [facility] per Dr. Chacon. * Surgical History: T ubal Ligation , LT Salpingoophorectomy , Hysterectomy 05/10/2010, Oral 10/29/2011. * Hospitalization/Major Diagno stic Procedure: E mergency surgery after hysterectomy 05/2010, Abdominal Pain- [facility] ER 07/24/2012, Migraine- [facility] ER 08/2012, Neck pain- [facility] ER 12/04/2014, Panic Attacks- [facility] ER , LT Knee Effusion- [facility] ER 02/12/2018, Nose Injury- [facility] ER 03/08/2022. * Family History: F [...] * Images: Billing Information: * Visit Code: 00247 Office Visit, Est Pt., Level 3. * Procedure Codes: 3074F SYST BP LT 130 MM HG. 3078F DIAST BP < 80 MM HG. * Electronic signature of Elidia Thurston MD on 12/28/2024 at 01:15 PM EDT Sign off status: Pending * Provider: Elidia Thurston M.D. Date: 0 05/14/2024 Generated for Chriss warren/Richa/Kalie on: 1 01:15 PM EDT History and Physical Notes * HPI (History [...]
--- OUTSIDE RECORDS SUMMARY | 2024-07-08 10:45 | XMS_ITS ---
Author Organization [facility] Address [facility] [facility] [address] [place] [phone] Care Team Providers Care Pen Tester Name Role Phone Kana Box Primary Care Provider Elidia Thurston [phone] Allergies No Known Allergies REASON FOR VISIT [...] Provider Diagnosis [place] [address] [place] [phone] 07/08/2024 Elidia Thurston Myofasciitis M60.9 Assessments Encounter [...] scheduled, Carlita son: Provider Name:Elidia Diaz er, 01/07/2025 11:30:00 AM, [address] [facility] 36 [facility], [address] , [place], [id number], Progress Notes * Naomy PICHARDODOB: 2 (44 yo F)Acc No.[id number]:07/08/2024 Progress Notes Patient: Naomy CARO Provider: Elidia Thurston M.D. :1980 A ge:43 Y S ex:Female Date:07/08/2024 Address:[address] [place] [address] [place] Pcp:Kana Box Subjective: * Chief Complaints: * [...] will no longer receive controlled substances from [facility] per Dr. Chacon. * Surgical History: T ubal Ligation , LT Salpingoophorectomy , Hysterectomy 05/10/2010, Oral 10/29/2011. * Hospitalization/Major Diagno stic Procedure: E mergency surgery after hysterectomy 05/2010, Abdominal Pain- [facility] 07/24/2012, Migraine- [facility] 08/2012, Neck pain- [facility] 12/04/2014, Panic Attacks- [facility] , LT Knee Effusion- [facility] 02/12/2018, Nose Injury- [facility] 03/08/2022. * Family History: [...] * Images: Billing Information: * Visit Code: 88902 Office Visit, Est Pt., Level 3. * Procedure Codes: * Electronic signature of Elidia Thurston MD on 12/28/2024 at 01:15 PM EDT Sign off status: Pending * Provider: Elidia Thurston M.D. Date: 0 07/08/2024 Generated for Rennyi ng/Richa/eTransmitting on: 01:15 PM EDT History and Physical Notes [...]
--- OUTSIDE RECORDS SUMMARY | 2024-08-02 09:45 | XMS_ITS ---
Author Organization [facility] Address [address] [place] [phone] Care Team Providers Care Smooth Plater Name Role Phone Kana Box Primary Care Provider Elidia Thurston [phone] Allergies No Known Allergies REASON FOR VISIT [...] Diagnosis [place] [address] [place] [phone] 08/02/2024 Elidia Thurston Anxiety disorder F41 .9 [...] 2 Months, Reason: Provider Name:Elidia Diaz er, 01/07/2025 11:30:00 AM, [address], [address] , [place], [place], [phone], Progress Notes * Naomy PICHARDODOB: 2 (44 yo F)Acc No.[id number]:08/02/2024 Progress Notes Patient: Naomy CARO Provider: Elidia Thurston M.D. :1980 A ge:43 Y S ex:Female Date:08/02/2024 Address:[address] [place] [address] [place] Pcp:Kana Box Subjective: * Chief Complaints: * 1 . 3 month f/u. * HPI: P sychology: The pt is here for a check up on Depression with anxiety. Pt states she is needing a refill for Diazepam sent to clinic pharmacy. Pt states she is having some stress right with having to travel to [place] to help her daughter. 43 year old [...] will no longer receive controlled substances from [facility] per Dr. Chacon. * Surgical History: T ubal Ligation , LT Salpingoophorectomy , Hysterectomy 05/10/2010, Oral 10/29/2011. * Hospitalization/Major Diagno stic Procedure: E mergency surgery after hysterectomy 05/2010, Abdominal Pain- [facility] 07/24/2012, Migraine- [facility] 08/2012, Neck pain- [facility] 12/04/2014, Panic Attacks- [facility] , LT Knee Effusion- [facility] 02/12/2018, Nose Injury- [facility] 03/08/2022. * Family History: F ather: [...] enal insufficiency - N28.9 5 . B ME less than 19,adult - Z68.1 Plan: * [...] * Images: Billing Information: * Visit Code: 46079 Office Visit, Est Pt., Level 3. * [...] M.D. Date: 0 08/02/2024 Generated for Chriss warren/Richa/Kalie on: 01:15 PM EDT History and Physical [...]
--- OUTSIDE RECORDS SUMMARY | 2024-10-04 07:00 | XMS_ITS ---
Author Organization [facility] Address [address] [place] [id number] Care Team Providers Care Penciller Name Role Phone Kana Box Primary Care Provider [phone] Elidia Thurston Unavailable [phone] Allergies No Known Allergies Results Component Value Reference Range Notes P-Comprehensive Metabolic Pa annia (CMP) Reviewed date:10/05/2024 01:57:45 PM Interpretation:Normal Performing Lab: Notes/Report: Test performed by [facility] [address] [place] [address] , [address], [place] [address] Clovis Ramirez MD, Probate Clerk CLIA: [id number] Sodium 140 135-145 mmol/L Potassium 4.0 3.5-5.3 [...] 10/04/2024 Encounters Encounter Location Date Provider Diagnosis [facility] [address] [facility] [address] [facility] [address] [place] [id number] 10/04/2024 Elidia Thurston Anxiety disorder F41 .9 [...] Diaz er, 01/07/2025 11:30:00 AM, [address] [facility], [address], [place], [id number], Progress Notes * Naomy PICHARDODOB: 2 (44 yo F)Acc No.[id number]:10/04/2024 Progress Notes Patient: Naomy CARO Provider: Elidia Thurston M.D. :1980 A ge:44 Y S ex:Female Date:10/04/2024 Address:[place], [id number] Pcp:Kana Box Subjective: * Chief Complaints: * [...] will no longer receive controlled substances from [facility] per Dr. Chacon. * Surgical History: T ubal Ligation , LT Salpingoophorectomy , Hysterectomy 05/10/2010, Oral 10/29/2011. * Hospitalization/Major Diagno stic Procedure: E mergency surgery after hysterectomy 05/2010, Abdominal Pain- [facility] 07/24/2012, Migraine- [facility] 08/2012, Neck pain- [facility] 12/04/2014, Panic Attacks- [facility] , LT Knee Effusion- [facility] 02/12/2018, Nose Injury- [facility] 03/08/2022. * Family History: F ather: [...] * Images: Billing Information: * Visit Code: 95846 Office Visit, Est Pt., Level 4. * Procedure Codes: 3074F SYST BP LT 130 MM HG. 3078F DIAST BP < 80 MM HG. * Electronic signature of Elidia Thurston MD on 12/28/2024 at 01:15 PM EDT Sign off status: Pending * Provider: Elidia Thurston M.D. Date: 0 10/04/2024 Generated for Rennyi ng/Faprachig/eTransmitting on: 01:15 PM EDT History and Physical [...]
--- NOTE | 2024-12-28 13:05 | XR_ITS ---
FINAL REPORT CLINICAL HISTORY: low back pain nki COMPARISON: 12/17/2012 FINDINGS: LUMBAR SPINE Six views were obtained. There is no acute fracture. The disc spaces are well-preserved. There is no malalignment. There is mild facet sclerosis in the lower lumbar spine. There is no evidence of instability. IMPRESSION: No acute process. Reviewed, Interpreted and Dictated by Abner Copeland MD Transcribed by Dianna Ruffin Authenticated and [facility]
--- NOTE | 2024-12-28 13:05 | XR_ITS ---
FINAL REPORT CLINICAL HISTORY: ACUTE BACK PAIN FINDINGS: RIGHT HIP Three views were obtained. There is no fracture or dislocation. The joint spaces appear normal. There are multiple surgical clips in the pelvis. There is no acute soft tissue abnormality. IMPRESSION: No acute process. Reviewed, Interpreted and Dictated by Abner Copeland MD Transcribed by Dianna Ruffin Authenticated and [facility]
--- OUTSIDE RECORDS SUMMARY | 2024-12-28 13:17 | XMS_ITS | Patient Health Record ---
Author Organization [facility] Address [address] [place] [id number] Care Team Providers Care Lease Operator Name Role Phone Kana Box Primary Care Provider [phone] Elidia Thurston Unavailable [phone] Ligia Gilmore Unavailable [phone] Allergies No Known Allergies Results Component Value Reference Range Notes P-Comprehensive Metabolic Pa annia (CMP) Reviewed date:02/09/2024 12:59:10 PM Interpretation:Na 131, cl 93, bun 30, Cr 1.45, gfr 46 Performing Lab: Notes/Report: Test performed by [facility] , [address], [place] [address] Clovis Ramirez MD, Training Personnel Supervisor CLIA: [id number] Sodium 131 135-145 mmol/L Potassium 5.1 3.5-5.3 [...] Interpretation:0.38 Performing Lab: Notes/Report: Test performed by [facility] [address] , [address], [place] [address] Clovis Ramirez MD, Training Personnel Supervisor CLIA: [id number] TSH 0.38 0.43-5.25 mU/L CBC Fingerstick (in house) Reviewed date:05/06/2024 05:59:38 [...] - 38 plat 245 100 - 400 P-Comprehensive Metabolic Pa annia (CMP) Reviewed date:10/05/2024 01:57:45 PM Interpretation:Normal Performing Lab: Notes/Report: Test performed by [facility] [address] [place] [address] , [address], [place] [address] Clovis Ramirez MD, Training Personnel Supervisor CLIA: [id number] Sodium 140 135-145 mmol/L Potassium 4.0 3.5-5.3 [...] 0.7 <0.2-1.2 mg/dL A/G Ratio 1.9 1.1-2.5 xultrasound : thyroid Reviewed date:02/26/2024 12:28:48 PM Interpretation:unremarkable Performing Lab: Notes/Report: unremarkable Medications Medication SIG (Take, Route, Frequency, Duration) Notes Start Date End Date Status Maxzide-25 37.5-25 MG 1 tablet in the morning Orally Once a day; Duration: 30 days Active Ondansetron 4 MG 1 tablet on the tongue and allow to dissolve Orally every 6 hours As needed 12/28/2024 Active Cyclobenzaprine HCl 10 MG 1 tablet at be dtime as needed Orally 3 times a day; Duration: 30 days 12/28/2024 Active Medrol 4 MG as directed orally daily; Duration: 6 days 12/28/2024 Active Lisinopril 20 mg one tablet by mouth daily; Duration: 90 days Active Gabapentin 100 MG 2 Orally Two times a day; Duration: 30 days 11/19/2024 Active diazePAM 2 MG 1 tablet as needed Orally Three times a day; Duration: 30 days 10/04/2024 Active Fluticasone Propionate 50 MCG/ACT Instill 1 SPRAY IN EACH NOSTRIL TWICE DAILY; Duration: 30 Active Methocarbamol 500 MG 2 tablets Orally twice a day Not-Taking Immunizations Vaccine Route Administration Date Status Comme nts Tetanus Tdap-Adacel (over 7yrs) Unknown 12/15/2012 Administered tuberculin (ppd) IN intranasal 12/05/2006 Administered xFluzone (6mos and older)-trivalent Unknown 12/11/2009 Administered xFluzone (6mos and older)-trivalent Unknown 12/13/2010 Administered xFluzone (6mos and older)-trivalent Unknown 11/28/2011 Administered Problems Problem Type SNOMED Code ICD Code Onset Dates Problem Status W/U Status Risk Notes Problem Anxiety disorder (482743260) Anxiety disorder NOS (300.00) Active confirmed Problem Allergic rhinitis (24189343) ALLERGIC RHINITIS NOS (477.9) Active confirmed Problem Insomnia (361078370) INSOMNIA NOS (780.52) Active confirmed Problem Anxiety disorder (263259709) Anxiety disorder (F41.9) Active confirmed Problem Essential hypertension (75682668) Essential hypertension (I10) Active confirmed Problem Seasonal allergy (263079649) Seasonal allergies (J30.2) Active confirmed Problem Hyperthyroidism (27572286) Hyperthyroidism (E05.90) Active confirmed Problem Myositis (89136105) Myofasciitis (M60.9) Active confirmed Problem Reactive depression (situational) (57768396) Situational depression (F43.21) Active confirmed Problem Allergic rhinitis (57487137) Allergic rhinitis (J30.9) Active confirmed Problem Acute back pain with sciatica (986903428) Acute back pain with sciatica (M54.40) Active confirmed Problem Chronic rhinitis (56221754) Rhinitis, unspecified type (J31.0) Active confirmed Problem Anxiety attack (013842723) Anxiety attack (F41.0) Active confirmed Vital Signs Heart Rate 65 /min 12/28/2024 Blood pressure diastolic 90 mm Hg 12/28/2024 Height 63.50 in 12/28/2024 Blood pressure systolic 120 mm Hg 12/28/2024 Weight 97.6 lbs 12/28/2024 BMI 17.02 kg/m2 12/28/2024 Encounters Encounter Location Date Provider Diagnosis [facility] [address] [place], [place] [id number] 02/05/2024 Eldiia Thurston Situational depressi on F43.21 ; Essential hypertension I10 ; Hyperthyroidism E05.90 and Anxiety disorder F41.9 [facility] [address] [facility] [address] [place], [place] [id number] 05/06/2024 Elidia Thurston Acute URI J06.9 and Acute dysfunction of both eustachian tubes H69.93 [facility] [address] [facility] [address] [place], [place] [id number] 05/14/2024 Elidia Thurston Back pain M54.9 [facility] [address] [place], [place] [id number] 07/08/2024 J Uday Thurston Myofasciitis M60.9 [facility] [address] [place], [place] [id number] 08/02/2024 Elidia Thurston Anxiety disorder F41 .9 ; Situational depression F43.21 ; Essential hypertension I10 ; Renal insufficiency N28.9 and BMI less than 19,adult Z68.1 [facility] [address] [facility] [address] [place], [place] [id number] 10/04/2024 Elidia Thurston Anxiety disorder F41 .9 ; Hyponatremia E87.1 and Renal insufficiency N28.9 [facility] [address] [place], [place] [id number] 12/28/2024 Ligialaw Gilmore Acute back pain with sciatica M54.40 and Nausea 787.02 [facility] [address] [place], [place] [id number] 06/21/2024 J Uday Thurston Myofascial pain M79. 18 and BMI < 18.5 Z68.1 [facility] [address] [place], [place] [id number] 01/07/2024 R Bonifacio Box [facility] [address] [place], [place] [id number] 02/02/2024 J Uday Thurston Anxiety disorder F41 .9 [facility] [address] [place] [id number] 02/09/2024 J Uday Thurston Low thyroid stimulat ing hormone (TSH) level R79.89 [facility] [address] [place], [place] [id number] 05/03/2024 J Uday Thurston Anxiety disorder F41 .9 [facility] [address] [place] [id number] 05/07/2024 J Uday Thurston [facility] [address] [place] [id number] 06/17/2024 J Uday Thurston [facility] [address] [place], [place] [id number] 07/30/2024 J Uday Thurston [facility] [address] [place] [id number] 08/16/2024 R Bonifacio Box Screening for breast cancer Z12.31 [facility] [address] [place], [place] [id number] 08/17/2024 J Uday Thurston Myofasciitis M60.9 [facility] [address] [place], [place] [id number] 09/15/2024 Elidia Thurston Myofasciitis M60.9 [facility] [address] [place] [id number] 09/16/2024 Kana Box [facility] [address] [place] [id number] 11/15/2024 Elidia Thurston Myofasciitis M60.9 Assessments Encounter Date Diagnosis (ICD Code) Assessment Notes Treatment Notes Treatment Clinical Notes Section Notes 02/02/2024 Anxiety disorder (ICD-10 - F41.9) 02/05/2024 Situational depression (ICD-10 - F43.21) 02/09/2024 Low thyroid stimulating hormone (TSH) level (ICD-10 - R79.89) 05/03/2024 Anxiety disorder (ICD-10 - F41.9) 05/06/2024 Acute URI (ICD-10 - J06.9) 05/06/2024 Acute dysfunction of both eustachian tubes (ICD-10 - H69.93) 05/14/2024 Back pain (ICD-10 - M54.9) 06/21/2024 Myofascial pain (ICD-10 - M79.18) 06/21/2024 BMI < 18.5 (ICD-10 - Z68.1) 07/08/2024 Myofasciitis (ICD-10 - M60.9) Instructed on decrease and taper off prednisone. One a day for 5 days then every other and last dose 07/1808/02/2024 Anxiety disorder (ICD-10 - F41.9) 02/05/2024 Essential hypertension (ICD-10 - I10) 08/02/2024 Situational depression (ICD-10 - F43.21) 08/16/2024 Screening for breast cancer (ICD-10 - Z12.31) 08/17/2024 Myofasciitis (ICD-10 - M60.9) 09/15/2024 Myofasciitis (ICD-10 - M60.9) 10/04/2024 Hyponatremia (ICD-10 - E87.1) 10/04/2024 Anxiety disorder (ICD-10 - F41.9) 11/15/2024 Myofasciitis (ICD-10 - M60.9) 12/28/2024 Nausea (ICD-10 - 787.02) 12/28/2024 Acute back pain with sciatica (ICD-10 - M54.40) 10/04/2024 Renal insufficiency (ICD-10 - N28.9) 02/05/2024 Hyperthyroidism (ICD-10 - E05.90) 08/02/2024 Essential hypertension (ICD-10 - I10) 02/05/2024 Anxiety disorder (ICD-10 - F41.9) 08/02/2024 Renal insufficiency (ICD-10 - N28.9) 08/02/2024 BMI less than 19,adult (ICD-10 - Z68.1) Plan Of Treatment Pending Test Test Name Order Date X ray : Hip, right 12/28/2024 X ray : Spine, thoracic spine 12/28/2024 Mammogram 08/16/2024 MRI : Spine, Lumbar with and without con trast 12/28/2024 X ray : Spine, LS 12/28/2024 MRI : spine, thoracic with and without c ontrast 12/28/2024 P-ALEX 06/26/2023 Next Appt Details Provider Name:Elidia Diaz , 01/07/2025 11:30:00 AM, [address] [facility], [address], [place], [place], [id number], Insurance Providers Payer Name Payer Address Payer Phone Subscriber Number Group Number Insured Name Patient Relationship to Insured Coverage Start Date Coverage End Date [employer] [facility] [address] [place], [place] [id number] Naomy Pichardo Self - patient is the insured Medications Administered Medication Instructions Date of Administration Dosage Notes Dexamethasone 12/28/2024 1 mL Morphine 10/02/2012 2 mg phenergan 25 mg/ml 10/02/2012 25 mg Medical (General) History Medical History History ICD Code allergic rhinitis anxiety Endometriosis tobacco abuse 03/01/2015 Patient will no l onger receive controlled substances from [facility] per Dr. Chacon Surgical History Surgery Date(Month/Year) Tubal Ligation LT Salpingoophorectomy Hysterectomy 05/10/2010 Oral 10/29/2011 Hospitalization History Reason Date(Month/Year) Nose Injury- [facility] 03/08/2022 LT Knee Effusion- [facility] 02/12/2018 Panic Attacks- [facility] Neck pain- [facility] 12/04/2014 Migraine- [facility] 08/2012 Abdominal Pain- [facility] 07/24/2012 Emergency surgery after hysterectomy 2010
== END 2024-12-28 23:59 | disposition home or self-care (01) ==
LOC: RAD 12:48
PROVIDERS: PCP Family Medicine; Visit Provider Nurse Practitioner Family
DX: M54.40 Lumbago with sciatica, unspecified side (principal)
CPT/HCPCS: 72110; 73502

== ENCOUNTER 2025-01-07 12:48 | Outpatient (CLI) | payer OTHER, SELFPAY ==
--- OUTSIDE RECORDS SUMMARY | 2024-05-06 08:45 | XMS_ITS ---
Author Organization [facility] Address [address] [place] [id number] Care Team Providers Care Business Leader Name Role Phone Kana Box Primary Care Provider Elidia Thurston Unavailable [phone] Allergies No Known Allergies Results Component Value Reference Range Notes CBC Fingerstick (in house) Reviewed date:05/06/2024 05:59:38 PM Interpretation: Performing Lab: Notes/Report: wbc 7.7 3.5 - 10 lym 33.4% 15 - 50 mid 6.1% 2 - 15 gran 60.5% 35 - 80 rbc 4.08 3.5 - 5.5 hgb 13.3 11.5 - 16.5 hct 38.5 35 - 55 mcv 94.2 75 - 100 mch 32.5 25 - 35 mchc 34.5 31 - 38 plat 245 100 - 400 REASON FOR VISIT 3 months Medications Medication SIG (Take, Route, Frequency, Duration) Notes Start Date End Date Status Medrol 4 MG as directed orally d aily; Duration: 6 days 05/07/2024 Active diazePAM 2 MG 1 tablet as needed O rally Three times a day; Duration: 30 days 05/05/2024 Active Lisinopril 20 mg TAKE ONE TABLET BY M OUTH EVERY DAY; Duration: 30 Active Fluticasone Propionate 50 MCG/ACT Instill 1 SPRAY IN EACH NOSTRIL TWICE DAILY; Duration: 30 Active Maxzide-25 37.5-25 MG 1 tablet in the mo rning Orally Once a day; Duration: 30 days Active Meloxicam 7.5 MG 1 tablet Orally Once a day; Duration: 30 day(s) 06/26/2023 Active Vital Signs Blood pressure systolic 110 mm Hg 05/07/19 25 Blood pressure diastolic 80 mm Hg 025 Heart Rate 79 /min 05/06/2024 Height 63.50 in 05/06/2024 Weight 97.6 lbs 05/06/2024 BMI 17.02 kg/m2 05/06/2024 Encounters Encounter Location Date Provider Diagnosis [facility] [address] [facility] 36 [facility] [address] [place] [id number] 05/06/2024 Elidia Thurston Acute URI J06.9 and Acute dysfunction of both eustachian tubes H69.93 Assessments Encounter Date Diagnosis (ICD Code) Assessment Notes Treatment Notes Treatment Clinical Notes Section Notes 05/06/2024 Acute URI (ICD-10 - J06.9) 05/06/2024 Acute dysfunction of both eustachian tubes (ICD-10 - H69.93) Plan Of Treatment Medication Medication Name Sig Start Date Stop Date Notes Medrol 4 MG as directed orally daily; Duration: 6 days 08/2024 Next Appt Details Follow Up: 3 Months, Reason: Provider Name:Elidia Diaz er, 01/31/2025 11:15:00 AM, [address] [facility] 36 [facility], [address], [place], [phone], Procedure Notes * Category Sub-Category Detail Notes Tympanometry abnormal bilaterally low peaks Volume left 1.2 Volume right 1.5 Stapedial reflex absent bilaterally Progress Notes * Naomy PICHARDODOB: 2 (44 yo F)Acc No.[id number]:05/06/2024 Progress Notes Patient: Naomy CARO Provider: Elidia Thurston M.D. :1980 A ge:43 Y S ex:Female Date:05/06/2024 Address:[id number] Pcp:Kana Box Subjective: * Chief Complaints: * 1 . 3 months. * HPI: P sychology: The pt is here today for a check up on Depression with anxiety. Pt states she doing better with the depression. Pt states she has some swelling in her lymph nodes in her neck and some fluid in her ears. Pt states she went to the [facility] on FridayApr 24 and was told she had some fluid in both ears. Pt states she was given Cefdinir for 10 days. * ROS: D ERMATOLOGY: no R jackie. n o H caryl. G ASTROENTEROLOGY: no N ausea. n o V omiting. n o D iarrhea.? U ROLOGY: no D ifficulty urinating. n o B lood in urine. * Medical History: A llergic rhinitis, Anxiety, Endometriosis, Tobacco abuse, 03/01/2015 Patient will no longer receive controlled substances from [facility] per Dr. Chacon. * Surgical History: T ubal Ligation , LT Salpingoophorectomy , Hysterectomy 05/10/2010, Oral 10/29/2011. * Hospitalization/Major Diagno stic Procedure: E mergency surgery after hysterectomy 05/2010, Abdominal Pain- [facility] 07/24/2012, Migraine- [facility] ER 08/2012, Neck pain- [facility] ER 12/04/2014, Panic Attacks- [facility] ER , LT Knee Effusion- [facility] ER 02/12/2018, Nose Injury- [facility] ER 03/08/2022. * Family History: F ather: [...] IN EACH NOSTRIL TWICE DAILY , Taking Maxzide-25 37.5-25 MG Tablet 1 tablet in the morning Orally Once a day , Taking Lisinopril 20 mg Tablet TAKE ONE TABLET BY MOUTH EVERY DAY , Taking diazePAM 2 MG Tablet 1 tablet as needed Orally Three times a day , Medication List reviewed and reconciled with the patient * Allergies: N .K.D.A. Objective: * Vitals: W t:97.6, Temp:97.9, BP:110/80, HR:79, O2 Sat:99% on RA, Nurse:SABRINA, Ht: 63.50, BMI:17.02. * Examination: G eneral Examination: General Appearance: N AD. H EENT: T M's appear normal. O ral cavity: n o lesions, mucosa moist and WNL, no erythema. N anna: s upple, no lymphadenopathy, less tender, no spasm. C hest: n ormal shape and expansion. H eart: R SR. L ungs: c lear to auscultation. N eurologic Exam: I ntact, gait normal. S kin: n ormal, no rash. P eripheral pulses: n ormal . E xtremities: n o leg edema. P sychology: General Appearance: N AD. G rooming : a dequate.?Eye contact : n ormal. M ood : p leasant. N eurologic Exam: I ntact, gait normal. Assessment: * Assessment: 1. A cute URI - J06.9 (Primary) 2 . A cute dysfunction of both eustachian tubes - H69.93 Plan: * Treatment: Value Reference Range w bc 7.7 3.5 - 10 * l ym 33.4% 15 - 50 * m id 6.1% 2 - 15 * g ran 60.5% 35 - 80 * r bc 4.08 3.5 - 5.5 * h gb 13.3 11.5 - 16.5 * h ct 38.5 35 - 55 * m cv 94.2 75 - 100 * m ch 32.5 25 - 35 * m chc 34.5 31 - 38 * p lat 245 100 - 400 * Domitila Reed 05/06/2024 1:49 :13 PM > 1+ Provider reviewed results while patient in office. 2.?Acute dysfunction of both eustachian tubes? Start Medrol Tablet Therapy Pack, 4 MG, as directed, orally, daily, 6 days, 1, Refills 0.? * Procedures: T ympanometry: abnormal bilaterally l ow peaks. V olume left 1 .2.?Volume right 1 .5. S tapedial reflex a bsent bilaterally. * Procedure Codes: 9 2567 TYMPANOMETRY, [address] [place], [address] CAPILLARY BLOOD DRAW, 38991 CBC WITH AUTO DIFF, 3074F SYST BP LT 130 MM HG, 3079F DIAST BP 80-89 MM HG * Follow Up: 3 Months * Images: Billing Information: * Visit Code: 68960 Office Visit, Est Pt., Level 4. Modifiers: 25 * Procedure Codes: 42916 [place]MPAN[address]RY. [address] [place]. [address] CAPILLARY BLOOD DRAW. 45741 CBC WITH AUTO DIFF. 3074F SYST BP LT 130 MM HG. 3079F DIAST BP 80-89 MM HG. * Electronic signature of Elidia Thurston MD on 01/07/2025 at 12:52 PM EST Sign off status: Pending * Provider: Elidia Thurston M.D. Date: 0 05/06/2024 Generated for Rennyi briana/Richa/eTransmitting on: 1 03/09/2024 12:52 PM EST History and Physical Notes * Examination Category Sub-Category Detail Notes Category Not es General Examination HEENT: TM's appear normal Heart: RSR Lungs: clear to auscultatio n [...]
--- OUTSIDE RECORDS SUMMARY | 2024-05-14 05:30 | XMS_ITS ---
Author Organization [facility] Address [address] [place] [phone] Care Team Providers Care Utility Worker [employer] Name Role Phone Kana Box Primary Care Provider Elidia Thurston [phone] Allergies No Known Allergies Reason For Referral Reason back pain Diagnosis 1 Back pain (M54.9) [facility] Referring Provider First Name Elidia Frye Referring Provider Last Name Bertrand Referring Provider Speciality Family Pra ctice Referred Provider Specialty Physical The rapist General Notes Shayy Chase 05/15/19 12:18:48 PM > faxed to [facility] PT Referral Priority Routine REASON FOR VISIT ER this morning neck and shoulder pain Medications Medication SIG (Take, Route, Frequency, Duration) Notes Start Date End Date Status Gabapentin 100 MG 2 Orally At Bed Time ; Duration: 30 days 05/14/2024 Active predniSONE 5 MG 2 Orally Once a day; Duration: 30 days 05/14/2024 Active diazePAM 2 MG 1 tablet as needed O rally Three times a day; Duration: 30 days 05/05/2024 Active Lisinopril 20 mg TAKE ONE TABLET BY M OUTH EVERY DAY; Duration: 30 Active Fluticasone Propionate 50 MCG/ACT Instill 1 SPRAY IN EACH NOSTRIL TWICE DAILY; Duration: 30 Active Meloxicam 7.5 MG 1 tablet Orally Two times a day; Duration: 30 days 06/26/2023 Active Maxzide-25 37.5-25 MG 1 tablet in the mo rning Orally Once a day; Duration: 30 days Active Vital Signs Blood pressure systolic 112 mm Hg 05/15/19 25 Blood pressure diastolic 76 mm Hg 025 Heart Rate 60 /min 05/14/2024 Height 63.50 in 05/14/2024 Weight 99.2 lbs 05/14/2024 BMI 17.29 kg/m2 05/14/2024 Encounters Encounter Location Date Provider Diagnosis [facility] [facility] 36 [facility] [address] [place] [phone] 05/14/2024 Elidia Thurston Back pain M54 .9 Assessments Encounter Date Diagnosis (ICD Code) Assessment Notes Treatment Notes Treatment Clinical Notes Section Notes 05/14/2024 Back pain (ICD-10 - M54.9) Plan Of Treatment Medication Medication Name Sig Start Date Stop Date Notes Gabapentin 100 MG 2 Orally At Bed Time; Duration: 30 days 05/14/2024 predniSONE 5 MG 2 Orally Once a day; Duration: 30 days Meloxicam 7.5 MG 1 tablet Orally Two times a day; Duration: 30 days 06/26/2023 Referrals Referral Date Details 05/14/2024 05/14/2024, back joaquin n Next Appt Details Follow Up: 2 Weeks, Reason: Provider Name:Elidia Diaz er, 01/31/2025 11:15:00 AM, [address] [facility] 36 [facility], [address], [place], [phone], Progress Notes * Naomy PICHARDODOB: 2 (44 yo F)Acc No.[id number]:05/14/2024 Progress Notes Patient: Naomy CARO Provider: Elidia Thurston M.D. :1980 A ge:43 Y S ex:Female Date:05/14/2024 Address:[place] Pcp:Kana Box Subjective: * Chief Complaints: * 1 . ER this morning neck and shoulder pain. * HPI: S houlder/Upper arm: The patient is here today with c/o pain in her right shoulder. Pt states this pain got worse about 2 days ago and the nausea has worsened. Pt states she went to the ER at [facility] this morning and they gave her an injection of Toradol and placed a 5% Lidocaine patch on her neck/shoulder. Pt states she was given an rx for ondansetron and Methocarbamol 500 mg 2 tabs every 6 hours as needed but she has not started that yet. Pt states she has not slept much in the past 2 nights. Pt rates the pain 9 out of 10. She just came off of the Medrol dosepack 05/06-05/12. 43 year old female presents with c/o shoulder pain. * ROS: D ERMATOLOGY: no R jackie. n o H caryl. G ASTROENTEROLOGY: no N ausea. n o V omiting. n o D iarrhea.? U ROLOGY: no D ifficulty urinating. n o B lood in urine. * Medical History: A llergic rhinitis, Anxiety, Endometriosis, Tobacco abuse, 03/01/2015 Patient will no longer receive controlled substances from [facility] per Dr. Chacon. * Surgical History: T ubal Ligation , LT Salpingoophorectomy , Hysterectomy 05/10/2010, Oral 10/29/2011. * Hospitalization/Major Diagno stic Procedure: E mergency surgery after hysterectomy 05/2010, Abdominal Pain- [facility] ER 07/24/2012, Migraine- [facility] ER 08/2012, Neck pain- [facility] ER 12/04/2014, Panic Attacks- [facility] ER , LT Knee Effusion- [facility] ER 02/12/2018, Nose Injury- [facility] ER 03/08/2022. * Family History: F [...] needed Orally Three times a day , Discontinued Medrol 4 MG Tablet Therapy Pack as directed orally daily , Medication List reviewed and reconciled with the patient * Allergies: N .K.D.A. Objective: * Vitals: W t:99.2, Temp:97.7, BP:112/76, HR:60, Nurse:SABRINA, Ht: 63.50, BMI:17.29. * Examination: G eneral Examination: General Appearance: N AD, seems uncomfortable, sits rigidly. H EENT: u nremarkable. O ral cavity: n o lesions, mucosa moist and WNL, no erythema. N anna: s upple, no lymphadenopathy. C hest: n ormal shape and expansion. H eart: R SR. L ungs: c lear to auscultation. N eurologic Exam: I ntact, gait normal , no focal deficits. S kin: n ormal, no rash. P eripheral pulses: n ormal (2+) bilaterally. E xtremities: n o leg edema. Assessment: * Assessment: 1. B ack pain - M54.9 (Primary) Plan: * Treatment: * Procedure Codes: 3 074F SYST BP LT 130 MM HG, 3078F DIAST BP < 80 MM HG * Follow Up: 2 Weeks * Images: Billing Information: * Visit Code: 20647 Office Visit, Est Pt., Level 3. * Procedure Codes: 3074F SYST BP LT 130 MM HG. 3078F DIAST BP < 80 MM HG. * Electronic signature of Elidia Thurston MD on 01/07/2025 at 12:52 PM EST Sign off status: Pending * Provider: Elidia Thurston M.D. Date: 0 05/14/2024 Generated for Chriss warren/Richa/Kalie on: 03/09/2024 12:52 PM EST History and Physical Notes * HPI (History of Present Illness) Category Sub-Category Detail Notes Category Not es Shoulder/Upper arm shoulder pain Examination Category Sub-Category Detail Notes Category Not es General Examination HEENT: unremarkable Heart: RSR Lungs: clear to auscultatio n Extremities: no leg edema General Appearance: NAD, seems uncomfort able, sits rigidly Skin: normal, no rash Neurologic Exam: Intact, gait normal , no focal deficits Neck: supple, no lymphaden opathy Oral cavity: no lesions, mucosa m oist and WNL, no erythema Peripheral pulses: normal (2+) bilatera lly Chest: normal shape and exp ansion Consultation Request Notes Referral Date Referring Provider Referred Provider Not es 05/14/2024 Elidia Thurston , back pain
--- OUTSIDE RECORDS SUMMARY | 2024-07-08 09:45 | XMS_ITS ---
Author Organization [facility] Address [address] [facility] [address] [place] [phone] Care Team Providers Care Metalworking Instructor Name Role Phone Kana Box Primary Care Provider Elidia Thurston [phone] Allergies No Known Allergies REASON FOR VISIT 1 week Medications Medication SIG (Take, Route, Frequency, Duration) Notes Start Date End Date Status diazePAM 2 MG 1 tablet as needed Orally Three times a day; Duration: 30 days 05/05/2024 Active Meloxicam 7.5 MG 1 tablet Orally Once a day; Duration: 30 days 06/26/2023 Active Maxzide-25 37.5-25 MG 1 tablet in the morning Orally Once a day; Duration: 30 days Active Lisinopril 20 mg TAKE ONE TABLET BY MOUTH EVERY DAY; Duration: 30 Active predniSONE 5 MG 2 Orally Once a day; Duration: 30 days 05/14/2024 Active Gabapentin 100 MG 2 Orally Two times a day; Duration: 30 days 07/08/2024 Active Methocarbamol 500 MG 2 tablets Orally tw ice a day Not-Taking Fluticasone Propionate 50 MCG/ACT Instill 1 SPRAY IN EACH NOSTRIL TWICE DAILY; Duration: 30 Active Vital Signs Blood pressure systolic 132 mm Hg 07/09/19 25 Blood pressure diastolic 90 mm Hg 025 Heart Rate 67 /min 07/08/2024 Height 63.50 in 07/08/2024 Weight 97.0 lbs 07/08/2024 BMI 16.91 kg/m2 07/08/2024 Encounters Encounter Location Date Provider Diagnosis [place] [address] [place] [address] [place] [id number] 07/08/2024 Elidia Thurston Myofasciitis M60.9 Assessments Encounter Date Diagnosis (ICD Code) Assessment Notes Treatment Notes Treatment Clinical Notes Section Notes 07/08/2024 Myofasciitis (ICD-10 - M60.9) Instructed on decrease and taper off prednisone. One a day for 5 days then every other and last dose 07/18 Plan Of Treatment Medication Medication Name Sig Start Date Stop Date Notes predniSONE 5 MG 2 Orally Once a day; Duration: 30 days Gabapentin 100 MG 2 Orally Two times a day; Duration: 30 days 07/08/2024 Treatment Notes Assessment Notes Myofasciitis Instructed on decrea se and taper off prednisone. One a day for 5 days then every other and last dose 07/18 Next Appt Details Follow Up: as scheduled, Carlita son: Provider Name:Elidia Diaz er, 01/31/2025 11:15:00 AM, [address] [facility] 36 [facility], [address] , [place], [place], [id number], Progress Notes * Naomy PICHARDODOB: 2 (44 yo F)Acc No.[id number]:07/08/2024 Progress Notes Patient: Naomy CARO Provider: Elidia Thurston M.D. :1980 A ge:43 Y S ex:Female Date:07/08/2024 Address:[address] [place] [address] [place] Pcp:Kana Box Subjective: * Chief Complaints: * 1 . 1 week. * HPI: N anna: The pt is here today for a follow-up on neck and back pain. Pt states the prednisone is causing upset stomach, and she is not sleeping well with it. Pt states she is sweating more since starting it. * ROS: D ERMATOLOGY: no R jackie. n o H caryl. G ASTROENTEROLOGY: no N ausea. n o V omiting. n o D iarrhea.? U ROLOGY: no D ifficulty urinating. n o B lood in urine. * Medical History: A llergic rhinitis, Anxiety, Endometriosis, Tobacco abuse, 03/01/2015 Patient will no longer receive controlled substances from [facility] per Dr. Chacon. * Surgical History: T ubal Ligation , LT Salpingoophorectomy , Hysterectomy 05/10/2010, Oral 10/29/2011. * Hospitalization/Major Diagno stic Procedure: E mergency surgery after hysterectomy 05/2010, Abdominal Pain- [facility] 07/24/2012, Migraine- [facility] 08/2012, Neck pain- [facility] 12/04/2014, Panic Attacks- [facility] , LT Knee Effusion- [facility] 02/12/2018, Nose Injury- [facility] 03/08/2022. * Family History: F [...] no. Alcohol: no. * Medications: T aking Fluticasone Propionate 50 MCG/ACT Suspension Instill 1 SPRAY IN EACH NOSTRIL TWICE DAILY , Taking Maxzide-25 37.5-25 MG Tablet 1 tablet in the morning Orally Once a day , Taking diazePAM 2 MG Tablet 1 tablet as needed Orally Three times a day , Taking Gabapentin 100 MG Capsule 2 Orally At Bed Time , Taking predniSONE 5 MG Tablet 2 Orally Once a day , Taking Meloxicam 7.5 MG Tablet 1 tablet Orally Once a day , Taking Lisinopril 20 mg Tablet TAKE ONE TABLET BY MOUTH EVERY DAY , Not-Taking Methocarbamol 500 MG Tablet 2 tablets Orally twice a day , Medication List reviewed and reconciled with the patient * Allergies: N .K.D.A. Objective: * Vitals: W t: 97.0, Temp: 98.2, BP: 132/90, HR: 67, Nurse: SABRINA, Ht: 63.50, BMI:16.91. * Examination: G eneral Examination: General Appearance: N AD. H EENT: u nremarkable.?Oral cavity: n o lesions, mucosa moist and WNL, no erythema. N anna: s upple, no lymphadenopathy. C hest: n ormal shape and expansion. H eart: R SR. L ungs: c lear to auscultation. N eurologic Exam: I ntact, gait normal , no focal deficits. S kin:?normal, no rash. P eripheral pulses: n ormal (2+) bilaterally. E xtremities: n o leg edema. Assessment: * Assessment: 1. M yofasciitis - M60.9 Plan: * Treatment: * Follow Up: a s scheduled * Images: Billing Information: * Visit Code: 65080 Office Visit, Est Pt., Level 3. * Procedure Codes: * Electronic signature of Elidia Thurston MD on 01/07/2025 at 12:51 PM EST Sign off status: Pending * Provider: Elidia Thurston M.D. Date: 0 07/08/2024 Generated for Rennyi briana/Richa/eTransmitting on: 03/09/2024 12:51 PM EST History and Physical Notes * [...]
--- OUTSIDE RECORDS SUMMARY | 2024-08-02 08:45 | XMS_ITS ---
Author Organization [facility] Address [address] [place] [phone] Care Team Providers Care Molder Machine Tender Name Role Phone Kana Box Primary Care Provider Elidia Thurston [phone] Allergies No Known Allergies REASON FOR VISIT 3 month f/u Medications Medication SIG (Take, Route, Frequency, Duration) Notes Start Date End Date Status Gabapentin 100 MG 2 Orally Two times a day; Duration: 30 days 07/08/2024 Active Lisinopril 20 mg one tablet by mouth daily; Duration: 90 days Active Maxzide-25 37.5-25 MG 1 tablet in the morning Orally Once a day; Duration: 30 days Active diazePAM 2 MG 1 tablet as needed Orally Three times a day; Duration: 30 days 08/02/2024 Active Methocarbamol 500 MG 2 tablets Orally tw ice a day Not-Taking Fluticasone Propionate 50 MCG/ACT Instill 1 SPRAY IN EACH NOSTRIL TWICE DAILY; Duration: 30 Active Vital Signs Blood pressure systolic 112 mm Hg 08/03/19 25 Blood pressure diastolic 80 mm Hg 025 Heart Rate 84 /min 08/02/2024 Height 63.50 in 08/02/2024 Weight 96.0 lbs 08/02/2024 BMI 16.74 kg/m2 08/02/2024 Encounters Encounter Location Date Provider Diagnosis [place] [address] [place] [phone] 08/02/2024 Elidia Thurston Anxiety disorder F41 .9 ; Situational depression F43.21 ; Essential hypertension I10 ; Renal insufficiency N28.9 and BMI less than 19,adult Z68.1 Assessments Encounter Date Diagnosis (ICD Code) Assessment Notes Treatment Notes Treatment Clinical Notes Section Notes 08/02/2024 Anxiety disorder (ICD-10 - F41.9) 08/02/2024 Situational depression (ICD-10 - F43.21) 08/02/2024 Essential hypertension (ICD-10 - I10) 08/02/2024 Renal insufficiency (ICD-10 - N28.9) 08/02/2024 BMI less than 19,adult (ICD-10 - Z68.1) Plan Of Treatment Medication Medication Name Sig Start Date Stop Date Notes Meloxicam 7.5 MG 1 tablet Orally Once a day 06/26/2023 diazePAM 2 MG 1 tablet as needed O rally Three times a day; Duration: 30 days 08/02/2024 Next Appt Details Follow Up: 2 Months, Reason: Provider Name:Elidia Diaz er, 01/31/2025 11:15:00 AM, [address], [address] , [place], [place], [phone], Progress Notes * Naomy PICHARDODOB: 2 (44 yo F)Acc No.[id number]:08/02/2024 Progress Notes Patient: Naomy CARO Provider: Elidia Thurston M.D. :1980 A ge:43 Y S ex:Female Date:08/02/2024 Address:[address] [place] [address] [place], [place] Pcp:Kana Box Subjective: * Chief Complaints: * 1 . 3 month f/u. * HPI: P sychology: The pt is here for a check up on Depression with anxiety. Pt states she is needing a refill for Diazepam sent to clinic pharmacy. Pt states she is having some stress right with having to travel to [place] to help her daughter. 43 year old female presents with c/o stress. * ROS: D ERMATOLOGY: no R jackie. n o H caryl. G ASTROENTEROLOGY: no N ausea. n o V omiting. n o D iarrhea.? U ROLOGY: no D ifficulty urinating. n o B lood in urine. * Medical History: A llergic rhinitis, Anxiety, Endometriosis, Tobacco abuse, 03/01/2015 Patient will no longer receive controlled substances from [facility] per Dr. Chacon. * Surgical History: T ubal Ligation , LT Salpingoophorectomy , Hysterectomy 05/10/2010, Oral 10/29/2011. * Hospitalization/Major Diagno stic Procedure: E mergency surgery after hysterectomy 05/2010, Abdominal Pain- [facility] 07/24/2012, Migraine- [facility] 08/2012, Neck pain- [facility] 12/04/2014, Panic Attacks- [facility] , LT Knee Effusion- [facility] 02/12/2018, Nose Injury- [facility] 03/08/2022. * Family History: F [...] Orally Three times a day , Taking Meloxicam 7.5 MG Tablet 1 tablet Orally Once a day , Taking Gabapentin 100 MG Capsule 2 Orally Two times a day , Taking Lisinopril 20 mg Tablet one tablet by mouth daily , Not-Taking Methocarbamol 500 MG Tablet 2 tablets Orally twice a day , Discontinued predniSONE 5 mg Tablet TAKE TWO TABLETS BY MOUTH ONCE DAILY - TAKE WITH FOOD- , Medication List reviewed and reconciled with the patient * Allergies: N .K.D.A. Objective: * Vitals: W t: 96.0, Temp: 98.3, BP: 112/80, HR: 84, Nurse: SABRINA, Ht: 63.50, BMI:16.74. * Examination: G eneral Examination: General Appearance: [...] ormal . E xtremities: n o leg edema.? Assessment: * Assessment: 1. A nxiety disorder - F41.9 (Primary) 2 . S ituational depression - F43.21? 3. E ssential hypertension - I10 4 . R enal insufficiency - N28.9 5 . B WA less than 19,adult - Z68.1 Plan: * Treatment: 2. R enal insufficiency Stop Meloxicam Tablet, 7.5 MG, 1 tablet, Orally, Once a day. * Procedure Codes: G 8783 BP SCR PRFRM RCMDD DEFIND SCR INTVL, G8752 MOST RECENT SYSTOLIC BP < 140MM HG, G8754 MOST RECENT DIASTOLIC BP < 90MM HG, G9902 Pt scrn tbco and id as user * Follow Up: 2 Months * Images: Billing Information: * Visit Code: 38102 Office Visit, Est Pt., Level 3. * Procedure Codes: G8783 BP SCR PRFRM RCMDD DEFIND SCR INTVL. G8752 MOST RECENT SYSTOLIC BP < 140MM HG. G8754 MOST RECENT DIASTOLIC BP < 90MM HG. G9902 Pt scrn tbco and id as user. * Electronic signature of Elidia Thurston MD on 01/07/2025 at 12:51 PM EST Sign off status: Pending * Provider: Elidia Thurston M.D. Date: 0 08/02/2024 Generated for Chriss warren/Richa/Nupuritting on: 03/09/2024 12:51 PM EST History and Physical Notes * HPI (History of Present Illness) Category Sub-Category Detail Notes Category Not es Psychology stress Examination Category Sub-Category Detail Notes Category Not [...]
--- OUTSIDE RECORDS SUMMARY | 2024-10-04 06:00 | XMS_ITS ---
Author Organization [facility] Address [address] [place] [phone] Care Team Providers Care Insurance Claims Clerk Name Role Phone Kana Box Primary Care Provider Elidia Thurston Unavailable [phone] Allergies No Known Allergies Results Component Value Reference Range Notes P-Comprehensive Metabolic Pa annia (CMP) Reviewed date:10/05/2024 01:57:45 PM Interpretation:Normal Performing Lab: Notes/Report: CLIA: [id number] Clovis Ramirez MD, Retail Worker [facility] , [address], [place] [address] Test performed by [facility], [facility] Sodium 140 135-145 mmol/L Potassium 4.0 3.5-5.3 mmol/L Chloride 105 97-108 mmol/L CO2 26 20-32 mmol/L Glucose 86 65-99 mg/dL BUN 19 6-20 mg/dL Creatinine 0.86 0.50-1.00 mg/dL Calcium 10.0 8.6-10.4 mg/dL eGFR by Creatinine 86 >59 mL/min/1.73m2 Protein 7.2 6.0-8.3 g/dL Albumin 4.7 3.5-5.3 g/dL Alkaline Phosphatase 97 35-121 IU/L ALT (SGPT) 13 <5-47 IU/L AST (SGOT) 19 <5-40 IU/L Bilirubin, Total 0.7 <0.2-1.2 mg/dL A/G Ratio 1.9 1.1-2.5 REASON FOR VISIT 2 months Medications Medication SIG (Take, Route, Frequency, Duration) Notes Start Date End Date Status Maxzide-25 37.5-25 MG 1 tablet in the morning Orally Once a day; Duration: 30 days Active Fluticasone Propionate 50 MCG/ACT Instill 1 SPRAY IN EACH NOSTRIL TWICE DAILY; Duration: 30 Active diazePAM 2 MG 1 tablet as needed Orally Three times a day; Duration: 30 days 10/04/2024 Active Gabapentin 100 MG 2 Orally Two times a day; Duration: 30 days 09/20/2024 Active Lisinopril 20 mg one tablet by mouth daily; Duration: 90 days Active Methocarbamol 500 MG 2 tablets Orally tw ice a day Not-Taking Vital Signs Blood pressure systolic 110 mm Hg 10/05/19 25 Blood pressure diastolic 70 mm Hg 025 Heart Rate 61 /min 10/04/2024 Height 63.50 in 10/04/2024 Weight 96.6 lbs 10/04/2024 BMI 16.84 kg/m2 10/04/2024 Encounters Encounter Location Date Provider Diagnosis [facility] [facility] 36 [facility] [address] [place] [phone] 10/04/2024 Elidia Thurston Anxiety disorder F41 .9 ; Hyponatremia E87.1 and Renal insufficiency N28.9 Assessments Encounter Date Diagnosis (ICD Code) Assessment Notes Treatment Notes Treatment Clinical Notes Section Notes 10/04/2024 Anxiety disorder (ICD-10 - F41.9) 10/04/2024 Hyponatremia (ICD-10 - E87.1) 10/04/2024 Renal insufficiency (ICD-10 - N28.9) Plan Of Treatment Medication Medication Name Sig Start Date Stop Date Notes diazePAM 2 MG 1 tablet as needed O rally Three times a day; Duration: 30 days 10/04/2024 Next Appt Details Follow Up: 3 Months, Reason: Provider Name:Elidia Diaz er, 01/31/2025 11:15:00 AM, [address] [facility] 36 [facility], [address], [place], [phone], Progress Notes * Naomy PICHARDODOB: 2 (44 yo F)Acc No.[id number]:10/04/2024 Progress Notes Patient: Naomy CARO Provider: Elidia Thurston M.D. :1980 A ge:44 Y S ex:Female Date:10/04/2024 Address:[place], [id number] Pcp:Kana Box Subjective: * Chief Complaints: * 1 . 2 months. * HPI: P sychology: The pt is here today for a check up on Depression with anxiety. Pt states she is doing about the same. Refills are needed for Diazepam sent to clinic pharmacy. Pt states she is moving to another housing unit and has some pain in the right lower back/hip. Pt states she has been bending and lifting a lot. C onstitutional: Abnormal renal function in January. Meloxicam was D/C'd. Has not been rechecked. * ROS: D ERMATOLOGY: no R jackie. n o H caryl. G ASTROENTEROLOGY: no N ausea. n o V omiting. n o D iarrhea.? U ROLOGY: no D ifficulty urinating. n o B lood in urine. * Medical History: A llergic rhinitis, Anxiety, Endometriosis, Tobacco abuse, 03/01/2015 Patient will no longer receive controlled substances from [facility] per Dr. Chacon. * Surgical History: T ubal Ligation , LT Salpingoophorectomy , Hysterectomy 05/10/2010, Oral 10/29/2011. * Hospitalization/Major Diagno stic Procedure: E mergency surgery after hysterectomy 05/2010, Abdominal Pain- [facility] 07/24/2012, Migraine- [facility] 08/2012, Neck pain- [facility] 12/04/2014, Panic Attacks- [facility] , LT Knee Effusion- [facility] 02/12/2018, Nose Injury- [facility] 03/08/2022. * Family History: F [...] Tablet one tablet by mouth daily , Taking diazePAM 2 MG Tablet 1 tablet as needed Orally Three times a day , Taking Gabapentin 100 MG Capsule 2 Orally Two times a day , Not-Taking Methocarbamol 500 MG Tablet 2 tablets Orally twice a day , Medication List reviewed and reconciled with the patient * Allergies: N .K.D.A. Objective: * Vitals: W t: 96.6, Temp: 98.1, BP: 110/70, HR: 61, Nurse: SABRINA, Ht: 63.50, BMI:16.84. * Examination: G eneral Examination: General Appearance: [...] nxiety disorder - F41.9 (Primary) 2 . H yponatremia - E87.1 3 . R enal insufficiency - N28.9 Plan: * Treatment: 2. R enal insufficiency L AB: P-Comprehensive Metabolic Panel (CMP) (Collection Date & Time - 10/04/2024 11:10 AM) N ormal Value Reference Range A /G Ratio 1.9 1.1-2.5 - * A lbumin 4.7 3.5-5.3 - g/dL * A lkaline Phosphatase 97 35-121 - IU/L * A LT (SGPT) 13 <5-47 - IU/L * A ST (SGOT) 19 <5-40 - IU/L * B ilirubin, Total 0.7 <0.2-1.2 - mg/dL * B UN 19 6-20 - mg/dL * C alcium 10.0 8.6-10.4 - mg/dL * C hloride 105 97-108 - mmol/L * C O2 26 20-32 - mmol/L * C reatinine 0.86 0.50-1.00 - mg/dL * G lucose 86 65-99 - mg/dL * P otassium 4.0 3.5-5.3 - mmol/L * S odium 140 135-145 - mmol/L * P rotein 7.2 6.0-8.3 - g/dL * e GFR by Creatinine 86 >59 - mL/min/1.73m2 * Domitila Reed 10/05/2024 01: 57:37 PM EDT > Patient informed of normal results. * Procedure Codes: 3 074F SYST BP LT 130 MM HG, 3078F DIAST BP < 80 MM HG * Follow Up: 3 Months * Images: Billing Information: * Visit Code: 01223 Office Visit, Est Pt., Level 4. * Procedure Codes: 3074F SYST BP LT 130 MM HG. 3078F DIAST BP < 80 MM HG. * Electronic signature of Elidia Thurston MD on 01/07/2025 at 12:52 PM EST Sign off status: Pending * Provider: Elidia Thurston M.D. Date: 0 10/04/2024 Generated for Rennyi ng/Mikeg/eTransmitting on: 03/09/2024 12:52 PM EST History and Physical Notes * HPI (History of Present Illness) Category Sub-Category Detail Notes Category Not es Constitutional Abnormal mickie l function in January. Meloxicam was D/C'd. Has not been rechecked. Examination Category Sub-Category Detail Notes Category Not [...]
--- OUTSIDE RECORDS SUMMARY | 2024-12-28 06:15 | XMS_ITS ---
[facility] Address [address] [place] [phone] Care Team Providers Care Deli Associate Name Role Phone Kana Box Primary Care Provider [phone] DeirdreAlexsandraLigia Unavailable [phone] Allergies No Known Allergies Results Component Value Reference Range Notes X ray : Spine, LS Reviewed date:12/29/2024 12:11:19 PM Interpretation: Performing Lab: Notes/Report: X ray : Spine, LS Reviewed date:12/29/2024 12:11:19 PM Interpretation: Performing Lab: Notes/Report: REASON FOR VISIT Hip Pain Medications Medication SIG (Take, Route, Frequency, Duration) Notes Start Date End Date Status Ondansetron 4 MG 1 tablet on the tongue and allow to dissolve Orally every 6 hours As needed 12/28/2024 Active Cyclobenzaprine HCl 10 MG 1 tablet at be dtime as needed Orally 3 times a day; Duration: 30 days 12/28/2024 Active Medrol 4 MG as directed orally daily; Duration: 6 days 12/28/2024 Active Fluticasone Propionate 50 MCG/ACT Instill 1 SPRAY IN EACH NOSTRIL TWICE DAILY; Duration: 30 Active Methocarbamol 500 MG 2 tablets Orally twice a day Not-Taking Maxzide-25 37.5-25 MG 1 tablet in the morning Orally Once a day; Duration: 30 days Active Lisinopril 20 mg one tablet by mouth daily; Duration: 90 days Active diazePAM 2 MG 1 tablet as needed Orally Three times a day; Duration: 30 days 10/04/2024 Active Gabapentin 100 MG 2 Orally Two times a day 11/19/2024 Active Problems Problem Type SNOMED Code ICD Code Onset Dates Problem Status W/U Status Risk Notes Problem Acute back pain with sciatica (316190556) Acute back pain with sciatica (M54.40) Active confirmed Vital Signs Blood pressure systolic 120 mm Hg 12/29/19 25 Blood pressure diastolic 90 mm Hg 025 Heart Rate 65 /min 12/28/2024 Height 63.50 in 12/28/2024 Weight 97.6 lbs 12/28/2024 BMI 17.02 kg/m2 12/28/2024 Encounters Encounter Location Date Provider Diagnosis [facility] [address] [place] [id number] 12/28/2024 Ligia Gilmore Acute back pain with sciatica M54.40 and Nausea 787.02 Assessments Encounter Date Diagnosis (ICD Code) Assessment Notes Treatment Notes Treatment Clinical Notes Section Notes 12/28/2024 Acute back pain with sciatica (ICD-10 - M54.40) Absolutely no lifting/pushing /pulling; ice and heat; discussed positions of comfort; no Valium when taking the Flexeril; meds with food; will xray today and try to schedule MRI which pt requests 12/28/2024 Nausea (ICD-10 - 787.02) Plan Of Treatment Medication Medication Name Sig Start Date Stop Date Notes Ondansetron 4 MG 1 tablet on the tong ue and allow to dissolve Orally every 6 hours 12/28/2024 Cyclobenzaprine HCl 10 MG 1 tablet at be dtime as needed Orally 3 times a day; Duration: 30 days 12/28/2024 Medrol 4 MG as directed orally d aily; Duration: 6 days 12/28/2024 Gabapentin 100 MG 2 Orally Two times a day 11/19/2024 Treatment Notes Assessment Notes Acute back pain with sciatica Absolutely no lifting/pushing/pulling; ice and heat; discussed positions of comfort; no Valium when taking the Flexeril; meds with food; will xray today and try to schedule MRI which pt requests Pending Test Test Name Order Date X ray : Hip, right 12/28/2024 X ray : Spine, thoracic spine 12/28/2024 MRI : Spine, Lumbar with and without con trast 12/28/2024 MRI : spine, thoracic with and without c ontrast 12/28/2024 Next Appt Details Follow Up: prn,will notify o f test results, Reason: Provider Name:Elidia Diaz er, 01/31/2025 11:15:00 AM, [address], [address], [place], [phone], Medications Administered Medication Instructions Date of Administration Dosage Notes Dexamethasone 12/28/2024 1 mL Progress Notes * Naomy PICHARDODOB: 2 (44 yo F)Acc No.[id number]:12/28/2024 Progress Notes Patient: Naomy CARO Provider: JESUS Gambino :1980 A ge:44 Y S ex:Female Date:12/28/2024 Address:[id number] Pcp:Kana Box Subjective: * Chief Complaints: * 1 . Hip Pain. * HPI: Candace larose back: The pt is here today with c/o pain in her lower back that radiates down the right leg to the right knee. Pt states this started on Friday and was worse on Friday. Pt states she is using a heating pad without much help. Pt states she is also still having pain in her neck and is now having numbness and tingling in her right hand helps her older DAD with ADL; no known preciptating events; taking 1000mg tylenol 6 x daily. 44 year old female presents with c/o Low Back Pain. c/o radiation of pain. c/o tingling/ numbness d own the right leg. c/o previous therapy.? c/o previous imaging c annot remember when; no results in chart. c/o sleeping well has not been able to sleep. c/o Sciatica r ight leg. Denies : fall. D enies : previous surgery. D enies : bowel or bladder dysfunction. * ROS: D ERMATOLOGY: no R jackie. n o H caryl. G ASTROENTEROLOGY: no N ausea. n o V omiting. n o D iarrhea.? U ROLOGY: no D ifficulty urinating. n o B lood in urine. * Medical History: A llergic rhinitis, Anxiety, Endometriosis, Tobacco abuse, 03/01/2015 Patient will no longer receive controlled substances from [facility] per Dr. Chacon. * Surgical History: T ubal Ligation , LT Salpingoophorectomy , Hysterectomy 05/10/2010, Oral 10/29/2011. * Hospitalization/Major Diagno stic Procedure: E mergency surgery after hysterectomy 05/2010, Abdominal Pain- [facility] 07/24/2012, Migraine- [facility] 08/2012, Neck pain- [facility] 12/04/2014, Panic Attacks- [facility] , LT Knee Effusion- [facility] 02/12/2018, Nose Injury- [facility] 03/08/2022. * Family History: F [...] no. Alcohol: no. * Medications: T aking Maxzide-25 37.5-25 MG Tablet 1 tablet in the morning Orally Once a day , Taking diazePAM 2 MG Tablet 1 tablet as needed Orally Three times a day , Taking Lisinopril 20 mg Tablet one tablet by mouth daily , Taking Gabapentin 100 MG Capsule 2 Orally Two times a day , Taking Fluticasone Propionate 50 MCG/ACT Suspension Instill 1 SPRAY IN EACH NOSTRIL TWICE DAILY , Not-Taking Methocarbamol 500 MG Tablet 2 tablets Orally twice a day , Medication List reviewed and reconciled with the patient * Allergies: N .K.D.A. Objective: * Vitals: W t: 97.6, Temp: 98.2, BP: 120/90, HR: 65, Nurse: SABRINA, Ht: 63.50, BMI:17.02. * Examination: G eneral Examination: General Appearance: a lert; has a hard time getting comfortable, sitting or standing. H eart: R RR. L ungs: C TAB A&P. N eurologic Exam: a lert and oriented. L ower back: Inspection: e xaggerated lordosis, thin. P alpation:?vertebral spine tenderness lower thoracic and lumbar spines, paraspinal tenderness bilateral in lumbar region, radiation down leg on the right;. S traight leg raising test: p ositive at 30 degrees on, right. M otor system: d ecrease in the right. R eflexes: b ilaterally symmetrical. G ait: w alks with a limp. R mihai of motion: u nable to perform due to pain. H ip / Thigh: Hip joint: r ight. P alpation: t enderness on trochanteric bursa. T TP on thigh and knee and calf on the right. Assessment: * Assessment: 1. A cute back pain with sciatica - M54.40 (Primary) 2 . N ausea - 787.02? Plan: * Treatment: ?Imaging: MRI : spine, thoracic with and without contrast* Shayy Chase 12/29/2024 08: 35:19 AM EDT > faxed to [facility] Scheduling ?Imaging: X ray : Spine, LS (Performed Date - 12/28/2024)* Ligia Gilmore 12:10:19 PM EDT >I spoke with pt and reported resultsof spine and hip xrays; MRI to be scheduled Notes: Absolutely no lifting/pushing/pulling; ice and heat; discussed positions of comfort; no Valium when taking the Flexeril; meds with food; will xray today and try to schedule MRI which pt requests??2.?Nausea? Start Ondansetron Tablet Disintegrating, 4 MG, 1 tablet on the tongue and allow to dissolve, Orally, every 6 hours As needed, 20.?? * Therapeutic Injections: Dexamethasone : 1 mL (Route: Intramuscular) given by Domitila Reed on right gluteus (Acute back pain with sciatica) * Procedure Codes: J 1100 Dexamethasone, 25996 ADMINISTRATION OF INJECTION * Follow Up: p rn,will notify of test results * Images: Billing Information: * Visit Code: 65141 Office Visit, Est Pt., Level 3. * Procedure Codes: J1100 Dexamethasone. 96808 ADMINISTRATION OF INJECTION. * Electronic signature of Abbie Gilmore APRN on 01/07/2025 at 12:52 PM EST Sign off status: Pending * Provider: JESUS Gambino Date: Generated for Chriss Henry on: 03/09/2024 12:52 PM EST History and Physical Notes * HPI (History of Present Illness) Category Sub-Category Detail Notes Category Not es Lower back fall tingling/ numbness down the right leg Low Back Pain radiation of pain previous surgery previous therapy previous imaging cannot remember when ; no results in chart sleeping well has not been able to sleep bowel or bladder dysfunction Sciatica right leg Examination Category Sub-Category Detail Notes Category Not es General Examination Heart: RRR Lungs: CTAB A&P General Appearance: alert; has a hard ti me getting comfortable, sitting or standing Neurologic Exam: alert and oriented Lower back Straight leg raising test: positive at 30 degrees on, right Motor system: decrease in the righ t Reflexes: bilaterally symmetri travis Gait: walks with a limp Inspection: exaggerated lordosis , thin Palpation: vertebral spine tend erness lower thoracic and lumbar spines, paraspinal tenderness bilateral in lumbar region, radiation down leg on the right; Range of motion: unable to perform du e to pain Hip / Thigh Hip joint: right TTP on thigh an d knee and calf on the right Palpation: tenderness on trocha nteric bursa
--- OUTSIDE RECORDS SUMMARY | 2025-01-07 12:53 | XMS_ITS | Patient Health Record ---
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 Name Role Phone Kana Box Primary Care Provider [phone] Elidia Thurston Unavailable [phone] Ligia Gilmore Unavailable [phone] Allergies No Known Allergies Results Component Value [...] Interpretation:Normal Performing Lab: Notes/Report: Test performed by [facility] , [address], [place] [address] Clovis Ramirez MD, Family Service Counselor CLIA: [id number] Sodium 140 135-145 mmol/L Potassium 4.0 3.5-5.3 [...] 0.7 <0.2-1.2 mg/dL A/G Ratio 1.9 1.1-2.5 X ray : Spine, LS Reviewed date:12/29/2024 12:11:19 PM Interpretation: Performing Lab: Notes/Report: X ray : Spine, LS Reviewed date:12/29/2024 12:11:19 PM Interpretation: Performing Lab: Notes/Report: P-Comprehensive Metabolic Pa annia (CMP) Reviewed date:02/09/2024 12:59:10 PM Interpretation:Na 131, cl 93, bun 30, Cr 1.45, gfr 46 Performing Lab: Notes/Report: CLIA: [id number] Clovis Ramirez MD, Family Service Counselor [address] [place] [address] , [place] [address] Test performed by [facility] Sodium 131 135-145 mmol/L Potassium 5.1 3.5-5.3 [...] Interpretation:0.38 Performing Lab: Notes/Report: Test performed by [facility] [address] [place] [address] Isaiah [address], [place] [address] Clovis Ramirez MD, Family Service Counselor CLIA: [id number] TSH 0.38 0.43-5.25 mU/L xultrasound : thyroid Reviewed date:02/26/2024 12:28:48 PM Interpretation:unremarkable Performing Lab: Notes/Report: unremarkable Medications Medication SIG (Take, Route, Frequency, Duration) Notes Start Date End Date Status Lisinopril 20 mg one tablet by mouth daily; Duration: 90 days Active Maxzide-25 37.5-25 MG 1 tablet in the morning Orally Once a day; Duration: 30 days Not-Taking Cyclobenzaprine HCl 10 MG 1 tablet at be dtime as needed Orally 3 times a day; Duration: 30 days 12/28/2024 Not-Taking Fluticasone Propionate 50 MCG/ACT Instill 1 SPRAY IN EACH NOSTRIL TWICE DAILY; Duration: 30 Active Methocarbamol 500 MG 2 tablets Orally twice a day Not-Taking diazePAM 2 MG 1 tablet as needed Orally Three times a day; Duration: 30 days 01/03/2025 Active Gabapentin 300 MG 1 capsule Orally twice a day; Duration: 30 days 01/07/2025 Active Ondansetron 4 MG 1 tablet on the tongue and allow to dissolve Orally every 6 hours As needed 12/28/2024 Not-Taking Medrol 4 MG as directed orally daily; Duration: 6 days 12/28/2024 Not-Taking Immunizations Vaccine Route Administration Date Status Comme nts Tetanus Tdap-Adacel (over 7yrs) Unknown 12/15/2012 Administered tuberculin (ppd) IN intranasal 12/05/2006 Administered xFluzone (6mos and older)-trivalent Unknown 12/11/2009 Administered xFluzone (6mos and older)-trivalent Unknown 12/13/2010 Administered xFluzone (6mos and older)-trivalent Unknown 11/28/2011 Administered Problems Problem Type SNOMED Code ICD Code Onset Dates Problem Status W/U Status Risk Notes Problem Anxiety disorder (613745970) Anxiety disorder NOS (300.00) Active confirmed Problem Allergic rhinitis (27088823) ALLERGIC RHINITIS NOS (477.9) Active confirmed Problem Insomnia (707507299) INSOMNIA NOS (780.52) Active confirmed Problem Anxiety disorder (974907092) Anxiety disorder (F41.9) Active confirmed Problem Essential hypertension (02169512) Essential hypertension (I10) Active confirmed Problem Seasonal allergy (920189059) Seasonal allergies (J30.2) Active confirmed Problem Hyperthyroidism (32331019) Hyperthyroidism (E05.90) Active confirmed Problem Cervicalgia (30622886) Cervicalgia (M54.2) Active confirmed Problem Chronic pain (89702993) Other chronic pain (G89.29) Active confirmed Problem Myositis (51539210) Myofasciitis (M60.9) Active confirmed Problem Reactive depression (situational) (86665316) Situational depression (F43.21) Active confirmed Problem Allergic rhinitis (47306028) Allergic rhinitis (J30.9) Active confirmed Problem Acute back pain with sciatica (146535436) Acute back pain with sciatica (M54.40) Active confirmed Problem Chronic rhinitis (96912197) Rhinitis, unspecified type (J31.0) Active confirmed Problem Anxiety attack (343680400) Anxiety attack (F41.0) Active confirmed Vital Signs Heart Rate 77 /min 01/07/2025 Blood pressure diastolic 80 mm Hg 01/07/2025 Height 63.50 in 01/07/2025 Blood pressure systolic 132 mm Hg 01/07/2025 Weight 96.6 lbs 01/07/2025 BMI 16.84 kg/m2 01/07/2025 Encounters Encounter Location Date Provider Diagnosis [facility] [facility] [address] [place], [place] [id number] 02/05/2024 Elidia Thurston Situational depressi on F43.21 ; Essential hypertension I10 ; Hyperthyroidism E05.90 and Anxiety disorder F41.9 [facility] [facility] [address] [place], [place] [id number] 05/06/2024 Elidia Thurston Acute URI J06.9 and Acute dysfunction of both eustachian tubes H69.93 [facility] 0 [facility] [address] [place], [place] [id number] 05/14/2024 Elidia Thurston Back pain M54.9 [facility] 0 [facility] [address] [place], [place] [id number] 07/08/2024 Elidia Thurston Myofasciitis M60.9 [facility] [address] [place], [place] [id number] 08/02/2024 J Uday Thurston Anxiety disorder F41 .9 ; Situational depression F43.21 ; Essential hypertension I10 ; Renal insufficiency N28.9 and BMI less than 19,adult Z68.1 [facility] [address] [place], [place] [id number] 10/04/2024 J Uday Thurston Anxiety disorder F41 .9 ; Hyponatremia E87.1 and Renal insufficiency N28.9 [facility] [address] [place], [place] [id number] 12/28/2024 Ligia Gilmore Acute back pain with sciatica M54.40 and Nausea 787.02 [facility] [address] [facility] [address] [place], [place] [id number] 01/07/2025 J Uday Thurston Cervicalgia M54.2 ; Other chronic pain G89.29 and Low back pain, unspecified M54.50 [facility] [address] [facility] [address] [place], [place] [id number] 06/21/2024 J Uday Thurston Myofascial pain M79. 18 and BMI < 18.5 Z68.1 [facility] [address] [place], [place] [id number] 02/02/2024 J Uday Thurston Anxiety disorder F41 .9 [facility] [address] [facility] [place], [place] [id number] 02/09/2024 J Uday Thurston Low thyroid stimulat ing hormone (TSH) level R79.89 [facility] [address] [place], [place] [id number] 05/03/2024 J Uday Thurston Anxiety disorder F41 .9 [facility] [address] [place], [place] [id number] 05/07/2024 Elidia Thurston [facility] [address] [place], [place] [id number] 06/17/2024 J Uday Thurston [facility] [address] [place], [place] [id number] 07/30/2024 J Uday Thurston [facility] [address] [place], [place] [id number] 08/16/2024 R Bonifacio Box Screening for breast cancer Z12.31 [facility] [address] [place], [place] [id number] 08/17/2024 J Uday Thurston Myofasciitis M60.9 [facility] [address] [place], [place] [id number] 09/15/2024 J Uday Thurston Myofasciitis M60.9 [facility] [address] [place], [place] [id number] 09/16/2024 R Bonifacio Isauro [facility] [address] [place], [place] [id number] 11/15/2024 J Uday Thurston Myofasciitis M60.9 [facility] [address] [place], [place] [id number] 12/28/2024 R Bonifacio Isauro [facility] [address] [place], [place] [id number] 12/29/2024 J Uday Thurston Anxiety disorder F41 .9 [facility] [address] [place], [place] [id number] 01/06/2025 Ligia Gilmore Assessments Encounter Date Diagnosis (ICD Code) Assessment [...] with sciatica (ICD-10 - M54.40) Absolutely no lifting/pushin g/pulling; ice and heat; discussed positions of comfort; no Valium when taking the Flexeril; meds with food; will xray today and try to schedule MRI which pt requests 12/29/2024 Anxiety disorder (ICD-10 - F41.9) 01/07/2025 Cervicalgia (ICD-10 - M54.2) 01/07/2025 Other chronic pain (ICD-10 - G89.29) 01/07/2025 Low back pain, unspecified (ICD-10 - M54.50) 10/04/2024 Renal insufficiency (ICD-10 - N28.9) 02/05/2024 [...] spine 12/28/2024 Mammogram 08/16/2024 MRI : Spine, Cervical with and without c ontrast 01/07/2025 MRI : Spine, Lumbar with and without con trast 12/28/2024 MRI : spine, thoracic with and without c ontrast 12/28/2024 [facility] 06/26/2023 Next Appt Details Provider Name:Elidia Diaz er, 01/31/2025 11:15:00 AM, [address], [place], [place], [id number], Insurance Providers Payer Name Payer Address Payer Phone Subscriber Number Group Number Insured Name Patient Relationship to Insured Coverage Start Date Coverage End Date [employer] [facility] [address] [place], [place] [phone] [id number] Naomy Pichardo Self - patient is the insured Medications Administered Medication Instructions Date of Administration Dosage Notes Dexamethasone 12/28/2024 1 mL Morphine 10/02/2012 2 mg phenergan 25 mg/ml 10/02/2012 25 mg Medical (General) History Medical History History ICD Code allergic rhinitis anxiety Endometriosis tobacco abuse 03/01/2015 Patient will no l onger receive controlled substances from [facility] per Dr. Chacon Surgical History Surgery Date(Month/Year) Tubal Ligation LT Salpingoophorectomy Hysterectomy 05/10/2010 Oral 10/29/2011 Hospitalization History Reason Date(Month/Year) Nose Injury- [facility] 03/08/2022 LT Knee Effusion- [facility] 02/12/2018 Panic Attacks- [facility] Neck pain- [facility] 12/04/2014 Migraine- [facility] 08/2012 Abdominal Pain- [facility] 07/24/2012 Emergency surgery after hysterectomy 2010
--- NOTE | 2025-01-07 13:01 | MR_ITS ---
FINAL REPORT CLINICAL HISTORY: ACUTE BACK PAIN W SCIATICA pain and pressure in lower back COMPARISON: None FINDINGS: Multiplanar MR imaging of the lumbar spine was performed without and with contrast. On the sagittal T2-weighted images, abnormal decreased signal is seen at the L4-5 level. The vertebral alignment is normal. There is no evidence of fracture. The conus is seen at approximately the L1 level and has an unremarkable appearance. L1-2: No significant canal stenosis or neuroforaminal narrowing is seen. L2-3: No significant canal stenosis or neuroforaminal narrowing is seen. L3-4: No significant canal stenosis or neuroforaminal narrowing is seen. L4-5: Mild diffuse disc bulge. Right posterolateral disc protrusion. Endplate hypertrophy. Moderate bilateral neural foraminal narrowing xdigm-facpuai-tdin-left. L5-S1: Mild diffuse disc bulge. Rnoy-gw-hprtdxwq left neural foraminal narrowing. No abnormal contrast enhancement is identified. IMPRESSION: Disc bulge at L4-5 with right posterolateral disc protrusion and moderate right neural foraminal narrowing. Lddn-xz-lqieleca left neural foraminal narrowing at L5-S1. Reviewed, Interpreted and Dictated by Abner Copeland MD Transcribed by Desire Mitchell Authenticated and [facility]
--- NOTE | 2025-01-07 13:01 | MR_ITS ---
FINAL REPORT CLINICAL HISTORY: mid back pain with right arm numbness and tingling COMPARISON: None FINDINGS: Multiplanar MR imaging of the thoracic spine was performed without and with contrast. On the sagittal T2-weighted images, there is abnormal decreased signal throughout the mid and lower thoracic disks. There is accentuated thoracic kyphosis. The thoracic cord demonstrates normal signal and configuration. There is a rounded focus of increased signal in an upper thoracic vertebra on T2 and STIR images but not on T1 weighted images, indeterminate and well seen on image 12 of series 6 and 7. This does not demonstrate enhancement on post infusion images. On the axial images, there is no significant disc bulge or protrusion. There is no marrow edema. On the postcontrast images, no abnormal contrast enhancement is identified. IMPRESSION: Focus of abnormal signal upper thoracic vertebra with increased signal on T2, indeterminate without enhancement. This may represent immature hemangioma. Follow-up in 3-6 months recommended to ensure stability. Reviewed, Interpreted and Dictated by Abner Copeland MD Transcribed by Desire Mitchell Authenticated and [facility]
[2025-01-07 13:15] LABS: Blood Urea Nitrogen 12 mg/dl (7-17); Creatinine,Serum 1.00 mg/dl (0.52-1.04); Estimated Glomerular Filt Rate 61 ml/min (>60); GFR (African American) 73 ML/MIN (>60)
[2025-01-07] MEDS: SODIUM CHLORIDE 0.9% 10ML SYR (RAD ONLY) 10 ML IV (14:54)
[2025-01-07] MEDS: GADOTERIDOL INJ 10ML SYRINGE 8 ML IV (14:54)
== END 2025-01-07 23:59 | disposition home or self-care (01) ==
LOC: RAD 12:49
PROVIDERS: PCP Family Medicine; Visit Provider Nurse Practitioner Family
DX: M51.16 Intervertebral disc disorders with radiculopathy, lumbar region (principal); M99.73 Connective tissue and disc stenosis of intervertebral foramina of lumbar region; R93.7 Abnormal findings on diagnostic imaging of other parts of musculoskeletal system
CPT/HCPCS: 36415; 72157; 72158; 82565; 84520; A9576